=== PATIENT | female | born 1985 | race Two or more races ===

== ENCOUNTER 2020-03-25 | Outpatient (REF) | payer OTHER, SELFPAY | END 2020-03-25 00:01 | disposition home or self-care (01) | LOC: HO.WFDLNP | PROVIDERS: Visit Provider Family Medicine | DX: Z20.822 Contact with and (suspected) exposure to COVID-19 (principal) | CPT/HCPCS: U0003 ==

== ENCOUNTER 2020-09-29 10:13 | Outpatient (REF) | payer OTHER, SELFPAY ==
[2020-09-30 09:18] LABS: CT PCR NOT DETECTED (Not Detect.); NG PCR NOT DETECTED (Not Detect.)
[2020-09-30 09:23] LABS: BV Int Neg Control Negative (Negative); BV Int Pos Control Positive (Positive)
== END 2020-09-29 10:14 | disposition home or self-care (01) ==
LOC: HO.LAB 10:13
PROVIDERS: PCP Internal Medicine Endocrinology, Diabetes & Metabolism; Visit Provider Advanced Practice Midwife
DX: Z01.419 Encounter for gynecological examination (general) (routine) without abnormal findings (principal); F17.210 Nicotine dependence, cigarettes, uncomplicated; Z20.2 Contact with and (suspected) exposure to infections with a predominantly sexual mode of transmission
CPT/HCPCS: 87480; 87491; 87510; 87591; 87660

== ENCOUNTER 2021-01-27 09:56 | Outpatient (REF) | payer OTHER, SELFPAY ==
[2021-01-27 12:33] LABS: HCG Quantitative < 2 mIU/mL
[2021-01-27 12:38] LABS: HBsAGNum1 0.19 S/CO (0.00-0.99); HIV AB/AG Nonreactive (Nonreactive); HIV Num 1 0.07 S/CO (0.00-0.99); Hepatitis B Surface Antigen Negative (Negative); ~HepC Num1 0.09 S/CO (0.00-0.79); ~Hepatitis C Antibody Nonreactive (Nonreactive)
[2021-01-27 12:46] LABS: Syphilis Screen Nonreactive (Nonreactive)
[2021-01-27 13:57] LABS: HBc Num1 0.21 S/CO (0.00-0.79); Hepatitis B Core Antibody Nonreactive (Nonreactive)
[2021-01-27 16:38] LABS: CT PCR NOT DETECTED (Not Detect.); NG PCR NOT DETECTED (Not Detect.)
[2021-01-28 10:55] LABS: BV Int Neg Control Negative (Negative); BV Int Pos Control Positive (Positive)
== END 2021-01-27 09:57 | disposition home or self-care (01) ==
LOC: HO.LAB 09:56
PROVIDERS: Advanced Practice Midwife; Visit Provider Obstetrics & Gynecology
DX: Z11.3 Encounter for screening for infections with a predominantly sexual mode of transmission (principal); Z11.4 Encounter for screening for human immunodeficiency virus [HIV]; N89.8 Other specified noninflammatory disorders of vagina; N95.1 Menopausal and female climacteric states; Z20.2 Contact with and (suspected) exposure to infections with a predominantly sexual mode of transmission
CPT/HCPCS: 36415; 84702; 86704; 86780; 86803; 87340; 87389; 87480; 87491; 87510; 87591; 87660; 99212

== ENCOUNTER 2021-02-25 09:55 | Outpatient (REF) | payer OTHER, SELFPAY ==
[2021-02-25 12:01] LABS: HIV AB/AG Nonreactive (Nonreactive); HIV Num 1 0.15 S/CO (0.00-0.99); ~HepC Num1 0.15 S/CO (0.00-0.79); ~Hepatitis C Antibody Nonreactive (Nonreactive)
[2021-02-25 12:12] LABS: Thyroid Stimulating Hormone 1.38 uIU/mL (0.32-4.0)
[2021-02-26 09:05] LABS: Syphilis Screen Nonreactive (Nonreactive)
== END 2021-02-25 09:56 | disposition home or self-care (01) ==
LOC: HO.LAB 09:55
PROVIDERS: PCP Internal Medicine; Visit Provider Advanced Practice Midwife
DX: R63.5 Abnormal weight gain (principal); R68.89 Other general symptoms and signs; N92.1 Excessive and frequent menstruation with irregular cycle; Z13.29 Encounter for screening for other suspected endocrine disorder; Z11.3 Encounter for screening for infections with a predominantly sexual mode of transmission; Z11.59 Encounter for screening for other viral diseases; Z11.4 Encounter for screening for human immunodeficiency virus [HIV]; F17.210 Nicotine dependence, cigarettes, uncomplicated; Z98.51 Tubal ligation status; Z83.3 Family history of diabetes mellitus; Z82.49 Family history of ischemic heart disease and other diseases of the circulatory system; Z83.6 Family history of other diseases of the respiratory system; Z80.1 Family history of malignant neoplasm of trachea, bronchus and lung; Z91.040 Latex allergy status
CPT/HCPCS: 36415; 81025; 84443; 86780; 86803; 87389; 99212

== ENCOUNTER 2021-10-04 09:58 | Outpatient (REF) | payer MEDICAID, SELFPAY ==
[2021-10-04 12:28] LABS: Syphilis Screen Nonreactive (Nonreactive)
[2021-10-04 15:17] LABS: CT PCR NOT DETECTED (Not Detect.); NG PCR NOT DETECTED (Not Detect.)
[2021-10-05 06:43] LABS: HBc Num1 0.33 S/CO (0.00-0.79); HIV AB/AG Nonreactive (Nonreactive); HIV Num 1 0.13 S/CO (0.00-0.99); Hepatitis B Core Antibody Nonreactive (Nonreactive); ~HepC Num1 0.09 S/CO (0.00-0.79); ~Hepatitis C Antibody Nonreactive (Nonreactive)
[2021-10-05 09:42] LABS: BV Int Neg Control Negative (Negative); BV Int Pos Control Positive (Positive)
== END 2021-10-04 09:59 | disposition home or self-care (01) ==
LOC: HO.LAB 09:58
PROVIDERS: PCP Family Medicine; Visit Provider Advanced Practice Midwife
DX: Z11.3 Encounter for screening for infections with a predominantly sexual mode of transmission (principal); Z11.4 Encounter for screening for human immunodeficiency virus [HIV]; Z20.2 Contact with and (suspected) exposure to infections with a predominantly sexual mode of transmission
CPT/HCPCS: 36415; 86704; 86780; 86803; 87389; 87480; 87491; 87510; 87591; 87660

== ENCOUNTER 2022-09-18 11:49 | Emergency (ER) | payer MEDICAID, SELFPAY ==
[2022-09-18 12:15] VITALS: BP 116/68; PULSE 63; RESP 18; TEMP 37.7; O2SAT 100; BMI 23.5
--- NOTE | 2022-09-18 12:17 | ED.GENADULT ---
HPI - General Adult General Chief complaint: Nausea/Vomiting/Diarrhea Stated complaint: Dizziness/Nausea Time Seen by Provider: 09/18/22 12:42 Source: patient, RN notes reviewed and old records reviewed Mode of arrival: ambulatory Limitations: no limitations History of Present Illness HPI narrative: 37-year-old female with a past medical history of MS, recently diagnosed, presenting to the ED complaining of epigastric abdominal pain, nausea, nonbloody emesis x 1 week with decreased p.o. intake. Also reports intermittent lightheadedness, headache, CP and SOB. denies lightheadedness at present. Admits abdominal pain worse with eating and drinking. Denies fever, chills, vision change/loss, diarrhea/constipation, dysuria/hematuria, weakness Onset (ago): week(s) Related Data Previous Rx's Medication Instructions Recorded metronidazole 0.75 % (37.5 mg/5 1 appful vaginal BEDTIME 5 days 10/05/21 gram) vaginal gel #70 grams aluminum-mag hydroxide-simethicone 5 ml PO 5XD PRN dyspepsia #30 mL 09/18/22 200 mg-200 mg-20 mg/5 mL oral susp (Maalox Advanced) famotidine 20 mg tablet (Pepcid) 20 mg PO DAILY #14 tabs 09/18/22 ondansetron 4 mg disintegrating 4 mg PO Q8H PRN nausea and 09/18/22 tablet vomiting #10 tabs Allergies Allergy/AdvReac Type Severity Reaction Status Date / Time latex [Latex] Allergy Mild RASH Verified 09/18/22 12:15 Review of Systems Review of Systems: Constitutional: No Fever, No Chills, No Fatigue, No Malaise ENT/Mouth: No Ear Pain, No Swallowing Difficulty Eyes: No Eye Pain, No Swelling, No Redness, No Vision Changes Cardiovascular: No Chest Pain, No SOB Respiratory: No Cough, No Sputum, No Dyspnea Gastrointestinal: + Nausea, + Vomiting, No Diarrhea, No Constipation, + Abdominal pain Genitourinary: No irregular bleeding, No Dysuria, No Urinary Frequency, No Hematuria, No Flank Pain Musculoskeletal: No joint pain, No Myalgias, No Joint Swelling Skin: No Skin Lesions, No rash Neuro: No Weakness, No Numbness, No Paresthesias, No Loss of Consciousness, + intermittent lightheadedness, + Headache Yes all other systems are reviewed and are negative Constitutional: Constitutional: Reports as per HPI Neurologic: Denies Abnormal speech present [facility] Past Medical History Attestation statement: The following information was validated with the patient. Source: old records reviewed Medical History Depression with anxiety Exposure to TB Surgical History History of cranial surgery Hx of tubal ligation Family History Family History Mother Asthma HTN (hypertension) HIV (human immunodeficiency virus infection) Father Asthma HTN (hypertension) Diabetes Paternal Uncle Lung cancer Social History Social History Alcohol intake: current Alcohol intake frequency: a few times a month Alcohol type: beer, wine and hard liquor Patient Tobacco Use Status: Current everyday Tobacco user Tobacco use type: Cigarette Cigarettes Per Day: 10 Years Smoked: 28 Smoked in Last 30 Days: Yes Use of substances other than those prescribed or required for medical reasons: No Advance Directives: No Advance Directives Information Provided: Yes Physical Exam ED Vital Signs: Vital Signs - 24 hr 09/18/22 12:15 09/18/22 12:33 09/18/22 13:17 Temperature 99.8 F 98.4 F Pulse Rate 63 87 71 Respiratory Rate 18 18 Blood Pressure 116/68 128/78 107/61 Pulse Oximetry 100 100 Oxygen Delivery Method Room Air Room Air 09/18/22 13:19 09/18/22 13:19 Temperature Pulse Rate 76 81 Respiratory Rate Blood Pressure 110/70 111/60 Pulse Oximetry Oxygen Delivery Method BMI result Body Mass Index 23.5 Const General: cooperative, healthy appearing and no acute distress Orientation/consciousness: patient oriented x3 Limitations: no limitations HENMT Head: Yes normal to inspection and Yes atraumatic Ears: hearing grossly normal bilaterally General nose exam: Normal external nose present Face and sinus: Yes normal facial exam Mouth: Normal oral and palatal mucosa present Throat: Yes posterior oropharynx normal and Yes uvula midline Eyes General: appearance normal, both eyes and all related structures Pupils: Equal, round and reactive pupils present EOM: EOMs intact bilaterally Neck Neck: Yes normal visual inspection and Yes no meningeal signs Resp Effort & Inspection: normal respiratory effort and no respiratory distress Auscultation: clear to auscultation bilaterally, no crackles and no wheezes Cardio Rate: regular rate Heart sounds: S1 normal heart sound present and S2 normal heart sound present GI Inspection: Yes normal to inspection Palpation (GI): Soft to palpation, Tenderness to palpation present (GI) in the epigastrum and in the RUQ; with no rebound tenderness, no guarding and not rigid General: Yes no CVA tenderness Back/Spine/Pelvis Back: no CVA tenderness Skin Rashes: no rashes Wounds: no wounds Neuro General: patient oriented x3, gait normal, tone normal, moves all extremities, no meningeal signs, no focal motor deficits and CN's II-XI intact bilaterally Cranial nerves: Yes CN's II-XII intact bilaterally, Yes Equal, round and reactive pupils present and Yes Bilaterally intact EOM present Cognition (Neuro): normal cognition Speech: No Abnormal speech present Gait exam (Neuro): Normal gait present Motor exam (neuro): 5/5 motor strength present throughout Extrem General: Yes normal to inspection Course Course Course Narrative: RME; 29 yold female with recently diagnosed with mS presents to the ED for dizziness prescribed as lighteadheadenessess, nuasea, vomitting, and slighst epigastric discomfort. labs and EkG ordered -1400--mild leukocytosis of 12.2. Labs otherwise reassuring. Troponin negative. UA negative. -radiology currently down, preliminary report of RUQ US reading fatty infiltration/hepatocellular disease. Gallbladder polyps without cholecystitis -orthostatic vital signs negative. Will p.o. challenge >> patient tolerating p.o. without abdominal pain, nausea or vomiting. Reports symptomatic improvement after medications given in the ED -1500-- patient requesting serum bHCG levels be drawn. She is aware of the negative urine results however is requesting this be doubled checked. -1646--blood hCG negative Results discussed with patient including worrisome signs and symptoms and strict return precautions, and when to return to the emergency department. They verbalized understanding and feel safe for discharge at this time. Medications Administered Discontinued Medications Generic Name Dose Route Start Last Admin Trade Name Freq PRN Reason Stop Dose Admin Al Hydroxide/Mg Hydroxide 30 ml 09/18/22 13:26 09/18/22 14:30 Magnesium Hydrox/Alum Hydrox 30 Ml Oral.Susp PO 09/18/22 13:27 30 ml ONCE ONE Administration Famotidine 20 mg 09/18/22 13:26 09/18/22 13:31 Famotidine/Pf 20 Mg/2 Ml Vial IVPUSH 09/18/22 13:27 20 mg ONCE ONE Administration Sodium Chloride 1,000 mls @ 999 mls/hr 09/18/22 12:45 09/18/22 15:39 Ns IV 09/18/22 13:45 Infused .Q1H1M TANVIR Infusion Ondansetron HCl 4 mg 09/18/22 13:26 09/18/22 13:31 Ondansetron Hcl 4 Mg/2 Ml Vial IVPUSH 09/18/22 13:27 4 mg ONCE ONE Administration Medical Decision Making Medical Decision Making [facility] Narrative: 37-year-old female with a past medical history of MS, recently diagnosed, presenting to the ED complaining of epigastric abdominal pain, nausea, nonbloody emesis x 1 week with decreased p.o. intake. Also reports intermittent lightheadedness, headache, CP and SOB. On exam vital signs stable, NAD, nontoxic appearing, no focal neuro deficits, denies lightheadedness at present, abdomen soft epigastric/RUQ tenderness, no rebound or guarding. Concern for pancreatitis vs cholecystitis/lithiasis vs possible medication reaction to new MS injection. Lower suspicion for renal stone/pyelo, UTI, atypical ACS/PE or CVA/cervical dissection or BPPV Plan: EKG, labs, UA, abdomen ultrasound, IVF, symptomatic treatment Please refer to course for remaining clinical decision making, interpretation of labs/imaging results, and discussions with consultants and/or family members. Differential Diagnosis Differential Diagnoses: The differential diagnosis associated with the presentation includes As above Lab Data [facility] Lab Attestation statement: I reviewed the patient's lab results. 09/18/22 12:48 09/18/22 12:47 Labs: Lab Results 09/18/22 09/18/22 09/18/22 Range/Units 12:46 12:46 12:47 WBC (4.8-10.8) X10*3/uL RBC (4.20-5.50) X10*6/uL Hgb (12.0-16.0) g/dl Hct (37.0-47.0) % MCV (80.0-98.0) fL MCH (27.0-33.0) pg MCHC (31.0-35.0) g/dl RDW (11.0-16.0) % Plt Count (160-400) X10*3/uL MPV (9.4-12.3) fL Immature Gran % (Auto) (0.0-0.4) % Neut % (Auto) (45-73) % Lymph % (Auto) (20-40) % [place] % (Auto) (2-11) % Eos % (Auto) (0-4) % Baso % (Auto) (0-2) % Lymph # (Auto) (1.2-4.9) X10*3/uL [place] # (Auto) (0.1-1.2) X10*3/uL Eos # (Auto) (0.0-0.4) X10*3/uL Baso # (Auto) (0.0-0.2) X10*3/uL Abs Immat Gran (auto) (0.00-0.03) X10*3/uL Absolute Neuts (auto) (2.0-8.3) x10*3/uL Absolute Nucleated RBC (0.0-0.012) X10*3/uL Nucleated RBC % (auto) (0.0-0.2) /100WBC PT (10.0-13.1) SEC INR (0.9-1.1) APTT (26.0-36.4) SEC Sodium 139 (135-145) mmol/L Potassium 3.8 (3.3-5.1) mmol/L Chloride 105 (96-108) mmol/L Carbon Dioxide 25 (22-29) mmol/L Anion Gap 13 (12-20) BUN 8 L (9-16) mg/dL Creatinine 0.66 (0.5-1.4) mg/dL Estim Creat Clear Calc 108.1 Estimated GFR > 60 Random Glucose 95 (60-115) mg/dL Calcium 9.5 (8.4-10.2) mg/dL Magnesium 2.1 (1.6-2.6) mg/dL Total Bilirubin 0.8 (0.0-1.0) mg/dL AST 16 (5-31) U/L ALT 12 (0-31) U/L Alkaline Phosphatase 66 (39-117) U/L Troponin I High Sens (<3.5-17.0) ng/L Total Protein 7.4 (6.5-8.0) g/dL Albumin 4.3 (3.5-5.0) g/dL Lipase 29 (8-78) U/L Beta HCG, Quant mIU/mL Urine Color Yellow Urine Appearance Clear Urine pH 7.0 (5.0-9.0) Ur Specific [place] 1.015 (1.005-1.025) Urine Protein Negative (Neg-Trace) mg/dL Urine Glucose (UA) Negative (Negative) mg/dL Urine Ketones Negative (Negative) mg/dL Urine Blood Negative (Negative) Urine Nitrite Negative (Negative) Ur Leukocyte Esterase Negative (Negative) Urine Test NEGATIVE (NEGATIVE) 09/18/22 09/18/22 09/18/22 Range/Units 12:47 12:48 12:48 WBC 12.2 H (4.8-10.8) X10*3/uL RBC 4.52 (4.20-5.50) X10*6/uL Hgb 13.6 (12.0-16.0) g/dl Hct 41.5 (37.0-47.0) % MCV 91.8 (80.0-98.0) fL MCH 30.1 (27.0-33.0) pg MCHC 32.8 (31.0-35.0) g/dl RDW 12.9 (11.0-16.0) % Plt Count 571 H (160-400) X10*3/uL MPV 8.6 L (9.4-12.3) fL Immature Gran % (Auto) 0.3 (0.0-0.4) % Neut % (Auto) 71.8 (45-73) % Lymph % (Auto) 19.1 L (20-40) % [place] % (Auto) 7.6 (2-11) % Eos % (Auto) 0.7 (0-4) % Baso % (Auto) 0.5 (0-2) % Lymph # (Auto) 2.3 (1.2-4.9) X10*3/uL [place] # (Auto) 0.9 (0.1-1.2) X10*3/uL Eos # (Auto) 0.1 (0.0-0.4) X10*3/uL Baso # (Auto) 0.1 (0.0-0.2) X10*3/uL Abs Immat Gran (auto) 0.04 H (0.00-0.03) X10*3/uL Absolute Neuts (auto) 8.7 H (2.0-8.3) x10*3/uL Absolute Nucleated RBC 0.000 (0.0-0.012) X10*3/uL Nucleated RBC % (auto) 0.0 (0.0-0.2) /100WBC PT 12.5 (10.0-13.1) SEC INR 1.1 (0.9-1.1) APTT 32.3 (26.0-36.4) SEC Sodium (135-145) mmol/L Potassium (3.3-5.1) mmol/L Chloride (96-108) mmol/L Carbon Dioxide (22-29) mmol/L Anion Gap (12-20) BUN (9-16) mg/dL Creatinine (0.5-1.4) mg/dL Estim Creat Clear Calc Estimated GFR Random Glucose (60-115) mg/dL Calcium (8.4-10.2) mg/dL Magnesium (1.6-2.6) mg/dL Total Bilirubin (0.0-1.0) mg/dL AST (5-31) U/L ALT (0-31) U/L Alkaline Phosphatase (39-117) U/L Troponin I High Sens < 2.7 (<3.5-17.0) ng/L Total Protein (6.5-8.0) g/dL Albumin (3.5-5.0) g/dL Lipase (8-78) U/L Beta HCG, Quant mIU/mL Urine Color Urine Appearance Urine pH (5.0-9.0) Ur Specific [place] (1.005-1.025) Urine Protein (Neg-Trace) mg/dL Urine Glucose (UA) (Negative) mg/dL Urine Ketones (Negative) mg/dL Urine Blood (Negative) Urine Nitrite (Negative) Ur Leukocyte Esterase (Negative) Urine Test (NEGATIVE) 09/18/22 Range/Units 14:50 WBC (4.8-10.8) X10*3/uL RBC (4.20-5.50) X10*6/uL Hgb (12.0-16.0) g/dl Hct (37.0-47.0) % MCV (80.0-98.0) fL MCH (27.0-33.0) pg MCHC (31.0-35.0) g/dl RDW (11.0-16.0) % Plt Count (160-400) X10*3/uL MPV (9.4-12.3) fL Immature Gran % (Auto) (0.0-0.4) % Neut % (Auto) (45-73) % Lymph % (Auto) (20-40) % [place] % (Auto) (2-11) % Eos % (Auto) (0-4) % Baso % (Auto) (0-2) % Lymph # (Auto) (1.2-4.9) X10*3/uL [place] # (Auto) (0.1-1.2) X10*3/uL Eos # (Auto) (0.0-0.4) X10*3/uL Baso # (Auto) (0.0-0.2) X10*3/uL Abs Immat Gran (auto) (0.00-0.03) X10*3/uL Absolute Neuts (auto) (2.0-8.3) x10*3/uL Absolute Nucleated RBC (0.0-0.012) X10*3/uL Nucleated RBC % (auto) (0.0-0.2) /100WBC PT (10.0-13.1) SEC INR (0.9-1.1) APTT (26.0-36.4) SEC Sodium (135-145) mmol/L Potassium (3.3-5.1) mmol/L Chloride (96-108) mmol/L Carbon Dioxide (22-29) mmol/L Anion Gap (12-20) BUN (9-16) mg/dL Creatinine (0.5-1.4) mg/dL Estim Creat Clear Calc Estimated GFR Random Glucose (60-115) mg/dL Calcium (8.4-10.2) mg/dL Magnesium (1.6-2.6) mg/dL Total Bilirubin (0.0-1.0) mg/dL AST (5-31) U/L ALT (0-31) U/L Alkaline Phosphatase (39-117) U/L Troponin I High Sens (<3.5-17.0) ng/L Total Protein (6.5-8.0) g/dL Albumin (3.5-5.0) g/dL Lipase (8-78) U/L Beta HCG, Quant < 2 mIU/mL Urine Color Urine Appearance Urine pH (5.0-9.0) Ur Specific [place] (1.005-1.025) Urine Protein (Neg-Trace) mg/dL Urine Glucose (UA) (Negative) mg/dL Urine Ketones (Negative) mg/dL Urine Blood (Negative) Urine Nitrite (Negative) Ur Leukocyte Esterase (Negative) Urine Test (NEGATIVE) Independent Interpretation I performed an independent interpretation of an: EKG (EKG normal sinus rhythm at a rate of 76. Pr interval 130. QTC 427. No significant change when compared to prior) Radiology Impression Discussion of test interpretation with radiology: I have reviewed the radiologist's reading. External Record Review External record reviewed: Inpatient record, Office record, Outpatient record, Prior outpatient labs, Prior outpatient radiology, Primary care record and Outside ED record Tests considered The following testing was considered but not selected: As above Prescription Management I considered prescription management with: Pain Medication and Other (antiemetics) Chronic Conditions Patient?s care impacted by: Other (MS) Critical Care Time Critical Care Time Critical Care Time: No Discharge Plan Discharge Clinical Impression: Gallbladder polyp, Abdominal pain, Nausea & vomiting Patient Disposition: Home, Self-Care Instructions: Acute Nausea and Vomiting (ED), Abdominal Pain (ED) Additional Instructions: Your labs are reassuring. The ultrasound of your abdomen showed that you have a fatty liver and polyps in your gallbladder that do not require intervention at this time. Please follow up with your PCP and a GI specialist for further workup. Zofran has been sent to your pharmacy. This is an anti nausea medication. Take this as prescribed. Pepcid and maalox have been sent to your pharmacy. These are medications that help with indigestion. Take these as prescribed. Return to the ED if your abdominal pain worsens, you continue to vomit despite treatment, or you spike a fever. Prescriptions: New famotidine [Pepcid] 20 mg tablet 20 mg PO DAILY Qty: 14 0RF alum-mag hydroxide-simeth [Maalox Advanced] 200-200-20 mg/5 mL suspension 5 ml PO 5XD PRN (Reason: dyspepsia) Qty: 30 0RF Rx Instructions: administer between meals and at bedtime ondansetron 4 mg tablet,disintegrating 4 mg PO Q8H PRN (Reason: nausea and vomiting) Qty: 10 0RF No Action metronidazole 0.75 % gel 1 appful vaginal BEDTIME 5 Days Qty: 70 0RF [place] [facility] [place] Group] - 5 days Tiara Han MD [Primary Care Provider] - 5 days Interventions: ED Discharge Assessment Last Done: 09/18/22 16:55 Discharge Date/Time: 09/18/22 16:56
[2022-09-18 12:33] VITALS: BP 128/78; PULSE 87; RESP 18; TEMP 36.9; O2SAT 100
[2022-09-18 13:17] VITALS: BP 107/61; PULSE 71
[2022-09-18 13:19] VITALS: BP 110/70; BP 111/60; PULSE 76; PULSE 81
== END 2022-09-18 16:56 | disposition home or self-care (01) ==
PROVIDERS: Emergency Provider Emergency Medicine Emergency Medical Services; PCP Family Medicine
DX: K82.4 Cholesterolosis of gallbladder (principal); R11.2 Nausea with vomiting, unspecified; R10.13 Epigastric pain; R11.0 Nausea; R11.10 Vomiting, unspecified; R42 Dizziness and giddiness; R51.9 Headache, unspecified; R07.9 Chest pain, unspecified; R06.02 Shortness of breath
CPT/HCPCS: 36415; 76705; 80053; 81003; 81025; 83690; 83735; 84484; 84702; 85025; 85610; 85730; 93005; 96361; 96374; 96375; 99284; 99285; J2405

== ENCOUNTER 2022-10-06 09:54 | Outpatient (REF) | payer MEDICAID, SELFPAY ==
[2022-10-06 11:50] LABS: Appearance Urine Cloudy; Color Urine Yellow; Glucose Urine UA Negative (Negative); Leukocyte Esterase Urine Negative (Negative); Nitrite Urine Negative (Negative); Urine Blood Negative (Negative); Urine Ketones Negative (Negative); Urine Protein Negative (Neg-Trace)
[2022-10-06 18:02] LABS: CT PCR NOT DETECTED (Not Detect.); NG PCR NOT DETECTED (Not Detect.)
[2022-10-07 08:24] LABS: Syphilis Screen Nonreactive (Nonreactive)
[2022-10-07 08:30] LABS: HBc Num1 0.33 S/CO (0.00-0.79); HIV AB/AG Nonreactive (Nonreactive); HIV Num 1 0.05 S/CO (0.00-0.99); Hepatitis B Core Antibody Nonreactive (Nonreactive); ~HepC Num1 0.11 S/CO (0.00-0.79); ~Hepatitis C Antibody Nonreactive (Nonreactive)
[2022-10-07 13:27] LABS: BV Int Neg Control Negative (Negative); BV Int Pos Control Positive (Positive)
== END 2022-10-06 09:55 | disposition home or self-care (01) ==
LOC: HO.LAB 09:54
PROVIDERS: PCP Family Medicine; Visit Provider Advanced Practice Midwife
DX: Z01.419 Encounter for gynecological examination (general) (routine) without abnormal findings (principal); R35.0 Frequency of micturition; R10.2 Pelvic and perineal pain; N89.8 Other specified noninflammatory disorders of vagina; F32.A Depression, unspecified; Z20.2 Contact with and (suspected) exposure to infections with a predominantly sexual mode of transmission; Z98.51 Tubal ligation status
CPT/HCPCS: 0353U; 36415; 81003; 86704; 86780; 86803; 87389; 87480; 87510; 87660; 99395

== ENCOUNTER 2022-10-06 09:54 | Outpatient (AMB) | payer MEDICAID, SELFPAY ==
[2022-10-06 10:00] VITALS: BP 108/70; BMI 25.0
--- NOTE | 2022-10-06 10:00 | MHC.OFFVIS ---
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 Scribed for RENO Agustin by Odilia Magaña, certified medical technician assistant, on 10/06/2022 at 10:16 am EST Shuttleless Loom Weaver Required: No Information Interpreted: non-clinical & clinical Green Ware Caster: Green Ware Caster Present (Aidyn) Allergies latex [Latex] Allergy (Mild, Verified 10/06/22 10:04) RASH Is last menstrual period known: Yes Last menstrual period: 09/20/22 Post menopausal: No HPI HPI Comments History of Present Illness Details She is a premenopausal woman presenting for annual exam. Feeling depressed due to recent diagnosis of MS, and had to stop working. Recently went to the ED 09/18/22 was told bladder and uterus is inflamed back in July. Admits to frequent urination, pelvic pressure, bloating and vaginal discharge for the past 2 weeks. PCP is sending her to GI specialist in the end of September for her abdominal bloating. States her menses are shorter than normal x 2 cycles. Currently sexually active, on and off again partner who has another female partner. Denies vaginal itching and irritation. STD screening and STD blood work offered; she accepts. She was wondering if her tubal was efficient, she reports they were only tied. Denies family hx of colon and ovarian cancer. Last pap smear 09/08/17 [facility] Medical History Depression with anxiety Exposure to TB Frequency of urination Multiple sclerosis Pelvic pressure in female Surgical History History of cranial surgery Hx of tubal ligation Family History Mother Asthma HTN (hypertension) HIV (human immunodeficiency virus infection) Father Asthma HTN (hypertension) Diabetes Paternal Uncle Lung cancer Family/Other Breast cancer Social History Alcohol intake: current Alcohol intake frequency: a few times a month Alcohol type: beer, wine and hard liquor Patient Tobacco Use Status: Current everyday Tobacco user Tobacco use type: Cigarette Cigarette Packs Per Day: 1 Cigarettes Per Day: 20 Years Smoked: 28 Female Reproductive History Menstrual Age of Menarche: 11 Duration of menses: 3-5 days Date of last menstrual period: 09/20/22 control method: permanent sterilization Total pregnancies: 5 Full term: 3 Number of Living Children: 3 Ab spontaneous: 2 Date of last pap smear: 09/08/17 (negative) History of abnormal pap smear: Yes Physical Exam Vital Signs: Last Vital Signs BP 108/70 10/06/22 10:00 BMI result Body Mass Index 25.0 Const General: cooperative, healthy appearing, no acute distress, well developed and alert Orientation/consciousness: patient oriented x3 HEENT Head: Yes normal to inspection Eyes General: appearance normal, both eyes and all related structures Neck Neck: Yes normal visual inspection Thyroid: Thyroid normal Chest Chest palpation & inspection: normal inspection of the chest Breast/axilla inspection: normal inspection of the breasts (no puckering, dimpling, peau de orange, retraction, discharge, masses) Breast/axilla palpation: normal palpation of the breasts Resp Effort & Inspection: normal respiratory effort GI Inspection: Yes normal to inspection Palpation (GI): Soft to palpation (to palpation) Rectal Exam - Female: deferred General: Yes bladder normal to inspection External Female Exam: normal external appearance and normal appearance of the urethra Speculum Exam - Vagina: normal appearance of the vagina, normal palpation and normal vaginal discharge Speculum Exam - Cervix: normal appearance of the cervix and normal palpation Bimanual exam- vagina & uterus: normal palpation and normal palpation Bimanual Exam- Adnexa, other: normal adnexae and no masses Skin General skin exam: no rashes or lesions noted Neuro General: patient oriented x3 Cognition (Neuro): normal cognition Extrem General: Yes normal to inspection Psych Attitude: cooperative Thought process: Normal thought process present Assessment & Plan Assessment & Plan (1) Encounter for well woman exam: Code(s): Z01.419 - Encounter for gynecological examination (general) (routine) without abnormal findings Plan: Discussed: Current recommendations for pap smears per ASCCP guidelines Breast awareness and periodic self breast exams. Maintaining a healthy lifestyle including a well balanced diet and routine exercise. Advised to lower tobacco intake, and quit. Referral to [facility] for counseling/therapy regarding depression. Encouraged to use condoms always for STD prevention. If missed menses take at home test. Monitor menses, if missed obtain a home PT. small risk of tubal . Can obtain her operative [place] for clarity if she desires [place] [facility] [place] typical [place] procedures. US ordered for pressure/bloating. Follow up for results. BV testing, STD blood work and GC/CT panel done today. Await results and treat accordingly. All of her questions and concerns were addressed to the best of my ability. RTO in one year for AG. (2) Frequency of urination: Code(s): R35.0 - Frequency of micturition (3) Pelvic pressure in female: Code(s): R10.2 - Pelvic and perineal pain (4) Vaginal discharge: Code(s): N89.8 - Other specified noninflammatory disorders of vagina (5) Depression: Code(s): F32.A - Depression, unspecified Orders: Orders US pelvic and transvaginal Today R10.2 - Pelvic and perineal pain UA CC w/rflx Micro + Cult Today R35.0 - Frequency of micturition Hepatitis B Core Antibody Today Z20.2 - Contact with and (suspected) exposure to infections with a predominantly sexual mode of transmission Hepatitis C Antibody Today Z20.2 - Contact with and (suspected) exposure to infections with a predominantly sexual mode of transmission HIV Ab/Ag Today Z20.2 - Contact with and (suspected) exposure to infections with a predominantly sexual mode of transmission Syphilis Screen Today Z20.2 - Contact with and (suspected) exposure to infections with a predominantly sexual mode of transmission Bacterial Vaginosis Panel Today Z01.419 - Encounter for gynecological examination (general) (routine) without abnormal findings CT NG by PCR Today Z01.419 - Encounter for gynecological examination (general) (routine) without abnormal findings Pap Smear Today Z01.419 - Encounter for gynecological examination (general) (routine) without abnormal findings Referrals Counseling Referral F32.A - Depression, unspecified Coding Level of Care Code Est Pt Prev Care 18-39y(10218) Diagnoses Encounter for well woman exam Z01.419 Frequency of urination R35.0 Pelvic pressure in female R10.2 Vaginal discharge N89.8 Depression F32.A
== END 2022-10-06 10:40 | disposition home or self-care (01) ==
LOC: HO.HWS 09:54
PROVIDERS: PCP Family Medicine; Visit Provider Advanced Practice Midwife
DX: Z01.419 Encounter for gynecological examination (general) (routine) without abnormal findings (principal); R35.0 Frequency of micturition; R10.2 Pelvic and perineal pain; N89.8 Other specified noninflammatory disorders of vagina; F32.A Depression, unspecified
CPT/HCPCS: 99395

== ENCOUNTER 2022-10-06 11:03 | Outpatient (REF) | payer MEDICAID, SELFPAY ==
[2022-10-15 11:48] LABS: HPV 16 RNA NOT DETECTED (NOT DETECTED); HPV mRNA E6/E7 rflx Detected (Not Detected)
== END 2022-10-06 11:04 | disposition home or self-care (01) ==
LOC: HO.LNP 11:03
PROVIDERS: Visit Provider Advanced Practice Midwife
DX: Z01.419 Encounter for gynecological examination (general) (routine) without abnormal findings (principal); Z20.2 Contact with and (suspected) exposure to infections with a predominantly sexual mode of transmission
CPT/HCPCS: 87624; 87625; 88142

== ENCOUNTER 2022-10-17 10:49 | Outpatient (REF) | payer MEDICAID, SELFPAY ==
--- NOTE | ~2022-10-17 | US_ITS ---
EXAMINATION: US PELVIS CLINICAL INFORMATION: Pelvic and perineal pain, bloating and pressure; the last menstrual period was on 09/20/2022. COMPARISON: Pelvic ultrasound dated 07/11/2019. TECHNIQUE: Ultrasound of the pelvis is performed using both transabdominal and transvaginal transducers along with Doppler. Transvaginal imaging is performed due to inadequate visualization transabdominally. FINDINGS: Uterus: The uterus is anteverted and measures 8.1 x 4.8 x 4.6 cm. The uterus is retroverted and retroflexed. Tiny punctate endometrial foci are seen, likely a sequela of prior hemorrhage or infection. These are of doubtful acute clinical significance. The double wall endometrial thickness is 0.6 mm. The uterus is smooth in contour and has normal myometrial echogenicity. No visible fibroid. Adnexa: Both ovaries are visualized. There is normal color flow to the adnexa. There is no ovarian torsion. There is a small amount of nonspecific free fluid in the cul-de-sac. Right ovary measures 3.4 x 1.6 x 1.6 cm, volume 6.3 mL. Left ovary measures 3.1 x 1.6 x 2.4 cm, volume 7.4 mL. US/US pelvic and transvaginal IMPRESSION: A small amount of nonspecific free fluid is seen within the cul-de-sac. The examination is otherwise unremarkable.
== END 2022-10-17 10:50 | disposition home or self-care (01) ==
LOC: HO.US 10:49
PROVIDERS: PCP Family Medicine; Visit Provider Advanced Practice Midwife
DX: R10.2 Pelvic and perineal pain (principal)
CPT/HCPCS: 76830; 76856

== ENCOUNTER 2022-11-09 09:04 | Outpatient (AMB) | payer MEDICAID, SELFPAY ==
--- NOTE | 2022-11-09 09:11 | A.OFFVIS_ITS ---
Intake Vital Signs 11/09/22 09:12 Height 5 ft 3 in Weight 141 lb BMI 25.0 BP 100/68 Intake Visit Reasons: US/Labs Follow up Intake Note: The patient agreed to use of a medical safety director during this encounter. Scribed for RENO Agustin by Odiila Magaña medical safety director, on 11/09/2022 at 9:28 am EST. Allergies latex [Latex] Allergy (Mild, Verified 11/09/22 09:12) RASH Is last menstrual period known: Yes Last menstrual period: 10/18/22 HPI HPI Comments History of Present Illness Details She is here to discuss US results regarding pelvic pain. Reports new onset pain during intimacy. States her and her partner feels like he is hitting something . No new partner. Denies feeling a external vulvar bulge or leakage of urine. [facility] Medical History Abnormal Pap smear of cervix Depression with anxiety Dyspareunia, female Exposure to TB Frequency of urination Multiple sclerosis Pelvic pressure in female Surgical History History of cranial surgery Hx of tubal ligation Family History Mother Asthma HTN (hypertension) HIV (human immunodeficiency virus infection) Father Asthma HTN (hypertension) Diabetes Paternal Uncle Lung cancer Family/Other Breast cancer Social History Alcohol intake: current Alcohol intake frequency: a few times a month Alcohol type: beer, wine and hard liquor Patient Tobacco Use Status: Current everyday Tobacco user Tobacco use type: Cigarette Cigarette Packs Per Day: 1 Cigarettes Per Day: 20 Years Smoked: 28 Female Reproductive History Menstrual Age of Menarche: 11 Date of last menstrual period: 10/18/22 Physical Exam Vital Signs: Last Vital Signs BP 100/68 11/09/22 09:12 BMI result Body Mass Index 25.0 Const General: cooperative, healthy appearing, comfortable, no acute distress, well developed, alert and awake Other: retroverted uterus; additionally patient had similar discomfort with exam as compared to with intimacy, when the posterior wall of her uterus was palpated today. General: Yes bladder normal to palpation External Female Exam: normal external appearance and normal appearance of the urethra Speculum Exam - Vagina: normal appearance of the vagina, normal palpation and normal vaginal discharge Speculum Exam - Cervix: normal appearance of the cervix and normal palpation Bimanual exam- vagina & uterus: normal bimanual exam, normal palpation, bladder normal to palpation and normal palpation Bimanual Exam- Adnexa, other: normal adnexae and no masses Results Reviewed Results Reviewed: EXAMINATION:? US PELVIS CLINICAL INFORMATION:? Pelvic and perineal pain, bloating and pressure; the last menstrual period was on 09/20/2022. COMPARISON: Pelvic ultrasound dated 07/11/2019. TECHNIQUE: Ultrasound of the pelvis is performed using both transabdominal and transvaginal transducers along with Doppler. Transvaginal imaging is performed due to inadequate visualization transabdominally. FINDINGS: Uterus: The uterus is anteverted and measures 8.1 x 4.8 x 4.6 cm. The uterus is retroverted and retroflexed. Tiny punctate endometrial foci are seen, likely a sequela of prior hemorrhage or infection. These are of doubtful acute clinical significance. The double wall endometrial thickness is 0.6 mm.? The uterus is smooth in contour and has normal myometrial echogenicity. ? No visible fibroid. Adnexa: Both ovaries are visualized. There is normal color flow to the adnexa. There is no ovarian torsion.? There is a small amount of nonspecific free fluid in the cul-de-sac. Right ovary measures 3.4 x 1.6 x 1.6 cm, volume 6.3 mL. Left ovary measures 3.1 x 1.6 x 2.4 cm, volume 7.4 mL. US/US pelvic and transvaginal IMPRESSION: A small amount of nonspecific free fluid is seen within the cul-de-sac. The examination is otherwise unremarkable. Attending: Brittany Mtz CNM : 1985 Submitted by: Brittany Mtz CNM Copies to: MR #: [id number] ? Status: DEP REF Collected: 10/06/22 Location: .[facility] Received: 10/11/22 Interpretation General Category: Epithelial cell abnormality. Adequacy: ? Endocervical component present. Interpretation: ? Atypical squamous cells of undetermined significance. Coccobacilli consistent with shift in vaginal flakito. HPV mRNA E6/E7:? DETECTED This assay detects E6/E7 viral messenger RNA (mRNA) from 14 high-risk HPV types (16, 18, 31, 33, 35, 39, 45, 51, 52, 56, 58, 59, 66, 68) HPV Type 16 RNA:? Not Detected HPV Type 18/45 RNA: ? Not Detected HPV testing performed by [facility], [place], [place].? See reference laboratory portion of the EMR for entire report Clinical Information LMP: 09/20/22 Previous PAP test: 09/08/17, WNL Assessment & Plan Assessment & Plan (1) Encounter to discuss test results: Code(s): Z71.2 - Person consulting for explanation of examination or test findings Plan: Discussed: US findings: normal. All of her questions and concerns were addressed to the best of my ability and shared decision making. She is agreeable to plan of care. (2) Abnormal Pap smear of cervix: Comment: ASCUS with HPV+; repeat in 2023. Discussed pap and plan of care today. Code(s): R87.619 - Unspecified abnormal cytological findings in specimens from cervix uteri (3) Dyspareunia, female: Code(s): N94.10 - Unspecified dyspareunia Plan: Discussed: Discomfort most likely positional with RV uterus and contributing factors to muscle weakness, lowering of pelvic organs with aging. Advised to try a silicone penis rings, or can use her hand as a spacer, and different positions during intimacy to avoid the direct impact pressure during intimacy. Coding Level of Care Code Est Pt Level 4 (99651) Diagnoses Encounter to discuss test results Z71.2 Abnormal Pap smear of cervix R87.619 Dyspareunia, female N94.10
[2022-11-09 09:12] VITALS: BP 100/68; BMI 25.0
== END 2022-11-09 14:57 | disposition home or self-care (01) ==
LOC: HO.HWS 09:04
PROVIDERS: PCP Family Medicine; Visit Provider Advanced Practice Midwife
DX: Z71.2 Person consulting for explanation of examination or test findings (principal); R87.619 Unspecified abnormal cytological findings in specimens from cervix uteri; N94.10 Unspecified dyspareunia
CPT/HCPCS: 99214

== ENCOUNTER → 2022-11-09 09:04 | Outpatient (BNVA) | payer MEDICAID, SELFPAY | PROVIDERS: PCP Family Medicine; Visit Provider Advanced Practice Midwife | DX: N94.10 Unspecified dyspareunia (principal); R87.619 Unspecified abnormal cytological findings in specimens from cervix uteri; Z71.2 Person consulting for explanation of examination or test findings | CPT/HCPCS: 99214 ==

== ENCOUNTER 2022-12-13 10:13 | Outpatient (REF) | payer MEDICAID, SELFPAY ==
[2022-12-13 11:18] LABS: MANUAL DIFF FLAG NO
[2022-12-13 11:36] LABS: Basophils Absolute Auto 0.1 X10*3/uL (0.0-0.2); Basophils Percent Auto 0.3 % (0-2); Eosinophils Absolute Auto 0.1 X10*3/uL (0.0-0.4); Eosinophils Percent Auto 0.6 % (0-4); Hematocrit 42.7 % (37.0-47.0); Imm Gran Abs Auto 0.07 X10*3/uL (0.00-0.03); Imm Gran Pct Auto 0.4 % (0.0-0.4); Lymphocytes Absolute Auto 2.7 X10*3/uL (1.2-4.9); Lymphocytes Percent Auto 16.8 % (20-40); Mean Corpuscular HGB Conc 32.8 g/dl (31.0-35.0); Mean Corpuscular Hemoglobin 29.9 pg (27.0-33.0); Mean Corpuscular Volume 91.2 fL (80.0-98.0); Mean Platelet Volume 9.4 fL (9.4-12.3); Monocytes Absolute Auto 1.1 X10*3/uL (0.1-1.2); Monocytes Percent Auto 6.8 % (2-11); Neutrophils Absolute Auto 12.2 x10*3/uL (2.0-8.3); Neutrophils Percent Auto 75.1 % (45-73); Platelet Count 613 X10*3/uL (160-400); Red Blood Count 4.68 X10*6/uL (4.20-5.50); Red Cell Distribution Width 13.2 % (11.0-16.0); White Blood Count 16.2 X10*3/uL (4.8-10.8)
[2022-12-13 12:01] LABS: Iron 95 mcg/dL (30-160); Percent Iron Saturation 30 % (15-50); Total Iron Binding Capacity 317 mcg/dL (228-428); Unsaturated Iron Binding 222 ug/dL
[2022-12-13 12:20] LABS: Ferritin 27 ng/mL (10-122)
[2022-12-13 12:31] LABS: Folate 9.6 ng/mL (> or = 4.0); Vitamin B12 546 pg/mL (200-900)
[2022-12-13 13:45] LABS: CT PCR NOT DETECTED (Not Detect.); NG PCR NOT DETECTED (Not Detect.)
[2022-12-14 03:56] LABS: Syphilis Screen Nonreactive (Nonreactive)
[2022-12-14 04:25] LABS: HBsAGNum1 0.38 S/CO (0.00-0.99); HIV AB/AG Nonreactive (Nonreactive); HIV Num 1 0.06 S/CO (0.00-0.99); Hepatitis B Core Antibody Nonreactive (Nonreactive); Hepatitis B Surface Antigen Negative (Negative); ~HepC Num1 0.09 S/CO (0.00-0.79); ~Hepatitis B Surface Antibody REACTIVE (Nonreactive); ~Hepatitis C Antibody Nonreactive (Nonreactive)
== END 2022-12-13 10:14 | disposition home or self-care (01) ==
LOC: HO.HHCL 10:13
PROVIDERS: PCP Family Medicine; Visit Provider Family Medicine
DX: Z11.4 Encounter for screening for human immunodeficiency virus [HIV] (principal); Z11.3 Encounter for screening for infections with a predominantly sexual mode of transmission; D64.9 Anemia, unspecified; L65.9 Nonscarring hair loss, unspecified
CPT/HCPCS: 0353U; 82607; 82728; 82746; 83540; 84443; 85025; 86704; 86706; 86780; 86803; 87340; 87389

== ENCOUNTER → 2023-01-03 09:58 | Outpatient (BNV) | payer MEDICAID, SELFPAY | PROVIDERS: PCP Family Medicine; Visit Provider Internal Medicine Medical Oncology | DX: D72.829 Elevated white blood cell count, unspecified (principal) | CPT/HCPCS: 99204; 99213 ==

== ENCOUNTER 2023-04-11 08:47 | Outpatient (AMB) | payer MEDICAID, SELFPAY ==
--- NOTE | 2023-04-11 09:03 | MHC.OFFVIS ---
Intake Vital Signs 04/11/23 09:05 Height 5 ft 3 in Weight 136 lb 10.986 oz BMI 24.2 BP 112/74 Blood Pressure Location Lt brachial Position Sitting Pulse 83 Intake Visit Reasons: RUQ Pain, GB Polyp Intake Note: Evelyn presents in the office as a new patient for RUQ pains and GB Polyp. CC: RUQ pains, she states that depends on her iron will decide if she has constipation and diarrhea. She was having iron infusions. No blood when she has a BM. Sometimes she has acid reflux depending on what she eats. Planning Technician Required: No Allergies latex [Latex] Allergy (Mild, Verified 04/11/23 09:06) RASH acetaminophen [From Percocet] Allergy (Verified 04/11/23 09:06) Stomach Upset oxycodone [From Percocet] Allergy (Verified 04/11/23 09:06) Stomach Upset diazepam [From Valium] Adverse Reaction (Verified 04/11/23 09:06) Fainting HPI RUQ Pain, GB Polyp HPI Details 37-year-old female with past medical history of MS, anxiety, depression is here today for initial consultation. Patient reports that she has been experiencing epigastric pain postprandially and sometimes not related to meals frequently. Patient reports that since she was diagnosed last year with MS she started to feel the symptoms. Patient reports abdominal pain and bloating. Reports that she is moving her bowels well without any issues. Patient reports epigastric burning with dyspepsia without dysphagia or odynophagia. Patient was seen in the ER in September of 2022, ultrasound showed gallbladder polyps without any other acute processes. Patient reports that she has not been taking anything for acid reflux. Reports that she has been moving her bowels well for the most part. Occasional postprandial abdominal bloating. Denies any nausea or vomiting. Denies melena, hematochezia, unintentional weight loss or ribbon like stools. [facility] Medical History Abnormal Pap smear of cervix Dyspareunia, female Pelvic pressure in female Frequency of urination Multiple sclerosis Exposure to TB Depression with anxiety Surgical History History of cranial surgery Hx of tubal ligation Family History Mother Asthma HTN (hypertension) HIV (human immunodeficiency virus infection) Father Asthma HTN (hypertension) Diabetes Paternal Uncle Lung cancer Family/Other Breast cancer Social History Household Members: Family Alcohol intake: current Alcohol intake frequency: a few times a month Alcohol type: beer, wine and hard liquor Patient Tobacco Use Status: Current everyday Tobacco user Tobacco use type: Cigarette Cigarette Packs Per Day: 1 Years Smoked: 28 service: No Current occupational status: disabled Female Reproductive History Menstrual Age of Menarche: 11 Review of Systems Const Denies weight gain and Denies weight loss ENT Reports no additional complaints, Denies dysphagia and Denies odynophagia Card Reports no additional complaints Resp Reports no additional complaints GI Reports abdominal pain (Epigastric), Denies belching, Denies melena, Reports bloating, Denies change in bowel habits, Denies dysphagia, Denies excessive flatus, Reports dyspepsia, Reports heartburn, Denies diarrhea, Denies loose stools, Denies nausea, Denies odynophagia and Denies vomiting Reports no additional complaints Musc Reports no additional complaints Neuro Reports no additional complaints Psych Reports no additional complaints Endo Reports no additional complaints Physical Exam Vital Signs: Last Vital Signs Pulse 83 04/11/23 09:05 BP 112/74 04/11/23 09:05 BMI result Body Mass Index 24.2 Const General: healthy appearing, no acute distress and well developed Nutritional Appearance: well nourished Orientation/consciousness: patient oriented x3 Resp Effort & Inspection: normal respiratory effort, able to speak in complete sentences, no tracheal deviation and symmetric chest movement Auscultation: clear to auscultation bilaterally Cardio Rate: regular rate GI Inspection: Yes normal to inspection and No distended Palpation (GI): Soft to palpation, not firm, nontender and No hepatosplenomegaly present Auscultation: normal bowel sounds General: Yes no CVA tenderness Back/Spine/Pelvis Back: no CVA tenderness Skin General skin exam: elasticity normal, turgor normal and dry skin Neuro General: patient oriented x3 Psych Appearance: grossly normal Mental Status: mental status grossly normal Assessment & Plan Assessment & Plan (1) GERD (gastroesophageal reflux disease): Code(s): K21.9 - Gastro-esophageal reflux disease without esophagitis Qualifiers: Esophagitis presence: esophagitis presence not specified Qualified Code(s): K21.9 - Gastro-esophageal reflux disease without esophagitis (2) Postprandial epigastric pain: Code(s): R10.13 - Epigastric pain Plan Patient will return to the office tomorrow for H pylori testing and treat empirically if positive. Unable to do the test today in the office as patient is chewing a gum. I will start her on omeprazole daily. Patient will start taking it after testing. Will rule out celiac. Discussed with patient avoiding dietary triggers and late night snacking. Staying upright for minimum 3 hours after meals discussed with patient. Patient will return to the office in 4-5 weeks, sooner on as needed basis. If patient continues to have epigastric discomfort and dyspepsia we will send her for upper endoscopy. She is agreeable to plan of care and verbalizes understanding of instructions. She was given the opportunity to ask questions and all questions answered. Thank you for allowing me to participate in her care Orders: Orders H Pylori Breath Test Today Transglutaminase IgA Today R10.9 - Unspecified abdominal pain Transglutaminase Ab IgG Today R10.9 - Unspecified abdominal pain Medications: New omeprazole 20 mg PO DAILY 30 tabs 2RF K21.9 - Gastro-esophageal reflux disease without esophagitis Coding Level of Care Code New Pt Level 3 (58155) Diagnoses Gastroesophageal reflux disease, unspecified whether esophagitis present K21.9 Esophagitis presence: esophagitis presence not specified Postprandial epigastric pain R10.13 Time Spent (min) 40 Comment 30 minutes spent with patient and additional 10 minutes spent reviewing her records
[2023-04-11 09:05] VITALS: BP 112/74; PULSE 83; BMI 24.2
== END 2023-04-11 09:45 | disposition home or self-care (01) ==
PROVIDERS: PCP Family Medicine; Visit Provider Nurse Practitioner Family
DX: K21.9 Gastro-esophageal reflux disease without esophagitis (principal)
CPT/HCPCS: 99203

== ENCOUNTER → 2023-04-11 08:47 | Outpatient (BNVA) | payer MEDICAID, SELFPAY | PROVIDERS: PCP Family Medicine; Visit Provider Nurse Practitioner Family | DX: K21.9 Gastro-esophageal reflux disease without esophagitis (principal); R10.13 Epigastric pain | CPT/HCPCS: 99212 ==

== ENCOUNTER 2023-04-12 08:46 | Outpatient (REF) | payer MEDICAID, SELFPAY ==
[2023-04-12 14:36] LABS: H Pylori Breath Test Negative (Negative)
== END 2023-04-12 08:47 | disposition home or self-care (01) ==
LOC: HO.LNP 08:46
PROVIDERS: PCP Family Medicine; Visit Provider Nurse Practitioner Family
DX: Z11.2 Encounter for screening for other bacterial diseases (principal)
CPT/HCPCS: 83013; 99211

== ENCOUNTER 2023-05-19 09:53 | Outpatient (REF) | payer MEDICAID, SELFPAY ==
[2023-05-23 08:04] LABS: Transglutaminase Ab IgG <1.0 U/mL; Transglutaminase IgA <1.0 U/mL
== END 2023-05-19 09:54 | disposition home or self-care (01) ==
LOC: HO.LAB 09:53
PROVIDERS: PCP Family Medicine; Visit Provider Nurse Practitioner Family
DX: K21.9 Gastro-esophageal reflux disease without esophagitis (principal); R10.13 Epigastric pain
CPT/HCPCS: 36415; 86364; 99212

== ENCOUNTER 2023-05-19 09:53 | Outpatient (AMB) | payer MEDICAID, SELFPAY ==
--- NOTE | 2023-05-19 10:09 | MHC.OFFVIS ---
Intake Vital Signs 05/19/23 10:12 Height 5 ft 3 in Weight 140 lb BMI 24.8 BP 104/59 L Blood Pressure Location Lt brachial Position Sitting Pulse 81 Intake Visit Reasons: 4 Weeks Follow Up Intake Note: Patient follow up for Hpylori results. ABD CT scan from [facility]. Patient cc: Nauseas, upper abdominal pain with some bloating, dizziness, fatigue and not a good appetite. Nurses Director Required: No Accompanied by: Self / Same As Patient Allergies latex [Latex] Allergy (Mild, Verified 05/19/23 10:08) RASH acetaminophen [From Percocet] Allergy (Verified 05/19/23 10:08) Stomach Upset oxycodone [From Percocet] Allergy (Verified 05/19/23 10:08) Stomach Upset diazepam [From Valium] Adverse Reaction (Verified 05/19/23 10:08) Fainting HPI 4 Weeks Follow Up HPI Details LAST VISIT GERD (gastroesophageal reflux disease) Postprandial epigastric pain Plan Patient will return to the office tomorrow for H pylori testing and treat empirically if positive. Unable to do the test today in the office as patient is chewing a gum. I will start her on omeprazole daily. Patient will start taking it after testing. Will rule out celiac. Discussed with patient avoiding dietary triggers and late night snacking. Staying upright for minimum 3 hours after meals discussed with patient. Patient will return to the office in 4-5 weeks, sooner on as needed basis. If patient continues to have epigastric discomfort and dyspepsia we will send her for upper endoscopy. She is agreeable to plan of care and verbalizes understanding of instructions. She was given the opportunity to ask questions and all questions answered. ? Thank you for allowing me to participate in her care Orders Orders H Pylori Breath Test Today Transglutaminase IgA Today R10.9 Transglutaminase Ab IgG Today R10.9 Medications New omeprazole 20 mg PO DAILY 30 tabs 2RF K21.9 TODAY'S VISIT Patient is here today for follow-up and to discuss lab results. H pylori negative. Patient never got her blood work done. On May 10 patient went to ER at [facility] for complaining of headache, nausea, dizziness, abdominal pain, generalized fatigue and body aches. While in the ER patient had negative viral swab, negative CT of the head and abdomen for any acute processes. Colon was filled with stool. Small hypodense cyst these most likely cysts seen in the liver. Patient continues to have epigastric discomfort. Patient states that she is not going to take any medications before we find out what is wrong with her. Patient did not try to take omeprazole. Patient reports that she has pain in her epigastric area all the time. Patient reports that the pain is not related to meals. Frequently she wakes up in the morning feeling nauseous with epigastric pain. Patient reports that she is moving her bowels. History of MS. Discussed with patient the importance of emptying her bowels and not always feeling like she empties them completely. Patient denies any melena, hematochezia, unintentional weight loss or ribbon like stools. Patient denies dyspepsia, dysphagia or odynophagia PFSH Medical History Abnormal Pap smear of cervix Dyspareunia, female Pelvic pressure in female Frequency of urination Multiple sclerosis Exposure to TB Depression with anxiety Surgical History History of cranial surgery Hx of tubal ligation Family History Mother Asthma HTN (hypertension) HIV (human immunodeficiency virus infection) Father Asthma HTN (hypertension) Diabetes Paternal Uncle Lung cancer Family/Other Breast cancer Social History Household Members: Family Alcohol intake: current Alcohol intake frequency: a few times a month Alcohol type: beer, wine and hard liquor Patient Tobacco Use Status: Current everyday Tobacco user Tobacco use type: Cigarette Cigarette Packs Per Day: 1 Years Smoked: 28 service: No Current occupational status: disabled Female Reproductive History Menstrual Age of Menarche: 11 Review of Systems Const Denies weight gain and Denies weight loss ENT Reports no additional complaints, Denies dysphagia and Denies odynophagia Card Reports no additional complaints Resp Reports no additional complaints GI Reports abdominal pain (Epigastric), Denies belching, Denies melena, Reports bloating, Denies change in bowel habits, Reports constipation, Denies dysphagia, Denies excessive flatus, Denies dyspepsia, Denies heartburn, Denies diarrhea, Denies loose stools, Denies nausea, Denies odynophagia and Denies vomiting Reports no additional complaints Musc Reports no additional complaints Neuro Reports no additional complaints Psych Reports no additional complaints Endo Reports no additional complaints Physical Exam Vital Signs: Last Vital Signs Pulse 81 05/19/23 10:12 BP 104/59 L 05/19/23 10:12 BMI result Body Mass Index 24.8 Const General: healthy appearing, no acute distress and well developed Nutritional Appearance: well nourished Orientation/consciousness: patient oriented x3 Resp Effort & Inspection: normal respiratory effort, able to speak in complete sentences, no tracheal deviation and symmetric chest movement Auscultation: clear to auscultation bilaterally Cardio Rate: regular rate GI Inspection: Yes normal to inspection and No distended Palpation (GI): Soft to palpation, not firm, nontender and No hepatosplenomegaly present Auscultation: normal bowel sounds General: Yes no CVA tenderness Back/Spine/Pelvis Back: no CVA tenderness Skin General skin exam: elasticity normal, turgor normal and dry skin Neuro General: patient oriented x3 Psych Appearance: grossly normal Mental Status: mental status grossly normal Affect: Irritable affect present Assessment & Plan Assessment & Plan (1) GERD (gastroesophageal reflux disease): Code(s): K21.9 - Gastro-esophageal reflux disease without esophagitis Qualifiers: Esophagitis presence: esophagitis presence not specified Qualified Code(s): K21.9 - Gastro-esophageal reflux disease without esophagitis (2) Epigastric abdominal pain: Code(s): R10.13 - Epigastric pain Plan Patient continues with epigastric pain not related to food. Most likely gastritis, esophagitis. Patient will be sent for upper endoscopy to rule out gastric or peptic ulcers, celiac. Patient was encouraged to get her blood work done today. I will also send her for HIDA scan. CT scan performed at [facility] did not visualize gallbladder completely. Even though unlikely cholecystitis, cholelithiasis or gallbladder dyskinesia as her symptoms are not related to food. There is a possibility of biliary colic. Patient was encouraged to try to take omeprazole in the morning and famotidine at bedtime, however patient refuses to do so. Patient insists on getting the test done 1st. Exam showed no tenderness, rebound tenderness however mild tenderness in epigastric area. Patient was encouraged to try to take MiraLax daily to help her empty her bowels better. With MS peristalsis could be effected and ability to emptying her bowels completely could be affected. I reviewed with patient her history and visit in the ER here at [facility] from 09/18/2022. Patient claims that she was in [place] and she never was in this hospital. However patient had ultrasound done and there is a note with lab work from that visit. Patient confirms her date of and full name. I will see patient after the procedure, sooner on as needed basis. Patient is agreeable to this plan and verbalizes understanding of instructions. She was given the opportunity to ask questions and all questions answered. Thank you for allowing me to participate in her care Orders: Orders NM hepatobiliary w pharm Today K21.9 - Gastro-esophageal reflux disease without esophagitis Medications: New famotidine (Pepcid) 20 mg PO BEDTIME 30 tabs 3RF K21.9 - Gastro-esophageal reflux disease without esophagitis Coding Level of Care Code Est Pt Level 4 (38479) Diagnoses Gastroesophageal reflux disease, unspecified whether esophagitis present K21.9 Esophagitis presence: esophagitis presence not specified Epigastric abdominal pain R10.13 Time Spent (min) 40 Comment 25 minutes spent with patient and additional 15 minutes spent reviewing her records
[2023-05-19 10:12] VITALS: BP 104/59; PULSE 81; BMI 24.8
== END 2023-05-19 11:03 | disposition home or self-care (01) ==
PROVIDERS: PCP Family Medicine; Visit Provider Nurse Practitioner Family
DX: K21.9 Gastro-esophageal reflux disease without esophagitis (principal); R10.13 Epigastric pain
CPT/HCPCS: 99214

== ENCOUNTER 2023-05-25 12:25 | Day surgery (SDC) | payer MEDICAID, SELFPAY ==
--- NOTE | 2023-05-24 09:07 | HO.ANESPROP2 ---
HPI - Anesthesia Eval Consult details Narrative: 37yo F for Upper Endoscopy PMFSH Active Problems Active Problems: All Active Problems (Updated 01/03/23 @ 15:15 by Edd Steven MD) Leukocytosis (Acute) Abnormal Pap smear of cervix (Acute) Dyspareunia, female (Acute) Pelvic pressure in female (Acute) Frequency of urination (Acute) Weight gain (Acute) Unintentional weight change (Acute) Screen for STD (sexually transmitted disease) (Acute) Hypomenorrhea (Acute) Vaginal discharge (Acute) Smoking (Acute) Encounter for annual routine gynecological examination (Acute) Contact with or exposure to other viral diseases (Acute) Past Medical History Medical History Abnormal Pap smear of cervix Dyspareunia, female Pelvic pressure in female Frequency of urination Multiple sclerosis Exposure to TB Depression with anxiety Family History Family History Mother Asthma HTN (hypertension) HIV (human immunodeficiency virus infection) Father Asthma HTN (hypertension) Diabetes Paternal Uncle Lung cancer Family/Other Breast cancer Surgical History Surgical History History of cranial surgery Hx of tubal ligation Social History Social History Household Members: Family Alcohol intake: current Alcohol intake frequency: a few times a month Alcohol type: beer, wine and hard liquor Patient Tobacco Use Status: Current everyday Tobacco user Tobacco use type: Cigarette Cigarette Packs Per Day: 1 Years Smoked: 28 service: No Current occupational status: disabled Meds Allergies Allergy/AdvReac Type Severity Reaction Status Date / Time latex [Latex] Allergy Mild RASH Verified 05/19/23 10:08 acetaminophen [From Percocet] Allergy Stomach Verified 05/19/23 10:08 Upset oxycodone [From Percocet] Allergy Stomach Verified 05/19/23 10:08 Upset diazepam [From Valium] AdvReac Fainting Verified 05/19/23 10:08 Home Medications Medication Instructions Recorded Confirmed Last Taken Type glatiramer 40 mg/mL subcutaneous 40 mg subcut DAILY 10/06/22 04/07/23 Unknown History syringe ([place]) albuterol sulfate 90 mcg/actuation 90 mcg inhalation DAILY PRN 01/03/23 04/07/23 Unknown History breath activated powder inhaler Wheezing amitriptyline 10 mg tablet 10 mg PO BEDTIME 01/03/23 04/07/23 Unknown History diphenhydramine HCl 25 mg capsule 25 mg PO DAILY PRN Allergy Symptoms 01/03/23 04/07/23 Unknown History (Benadryl) aspirin 81 mg tablet 81 mg PO DAILY 04/07/23 04/07/23 Unknown History Exam Pertinent Lab Results Pertinent Lab Results: Laboratory Tests 04/07/23 10:02 WBC 13.5 H Hgb 13.8 Hct 41.0 Plt Count 526 H Sodium 138 Potassium 4.0 Chloride 107 Carbon Dioxide 25 BUN 7 L Creatinine 0.65 Narrative Narrative: EKG 09/2022 Vent. Rate : 076 BPM Atrial Rate : 076 BPM P-R Int : 130 ms QRS Dur : 082 ms QT Int : 380 ms P-R-T Axes : -08 068 024 degrees QTc Int : 427 ms Normal sinus rhythm Normal ECG When compared with ECG of 01-APR-2015 20:59, No significant change was found Assessment and Plan Assessment Anesthesia Assessment: Chart Reviewed
--- NOTE | 2023-05-25 12:38 | HO.ANESPROP2 ---
[facility] Active Problems Active Problems: All Active Problems (Updated 01/03/23 @ 15:15 by Edd Steven MD) Leukocytosis (Acute) Abnormal Pap smear of cervix (Acute) Dyspareunia, female (Acute) Pelvic pressure in female (Acute) Frequency of urination (Acute) Weight gain (Acute) Unintentional weight change (Acute) Screen for STD (sexually transmitted disease) (Acute) Hypomenorrhea (Acute) Vaginal discharge (Acute) Smoking (Acute) Encounter for annual routine gynecological examination (Acute) Contact with or exposure to other viral diseases (Acute) Past Medical History Medical History Abnormal Pap smear of cervix Dyspareunia, female Pelvic pressure in female Frequency of urination Multiple sclerosis Exposure to TB Depression with anxiety Functional capacity: independent ambulation Patient : No Family History Family History Mother Asthma HTN (hypertension) HIV (human immunodeficiency virus infection) Father Asthma HTN (hypertension) Diabetes Paternal Uncle Lung cancer Family/Other Breast cancer Family history of problems with anesthesia: No Surgical History Surgical History History of cranial surgery Hx of tubal ligation Social History Social History Household Members: Family Alcohol intake: current Alcohol intake frequency: a few times a month Alcohol type: beer, wine and hard liquor Patient Tobacco Use Status: Current everyday Tobacco user Tobacco use type: Cigarette Cigarette Packs Per Day: 1 Years Smoked: 28 Advance Directives: No Advance Directives Information Provided: Yes service: No Current occupational status: disabled Meds Allergies Allergy/AdvReac Type Severity Reaction Status Date / Time latex [Latex] Allergy Mild RASH Verified 05/19/23 10:08 acetaminophen [From Percocet] Allergy Stomach Verified 05/19/23 10:08 Upset oxycodone [From Percocet] Allergy Stomach Verified 05/19/23 10:08 Upset diazepam [From Valium] AdvReac Fainting Verified 05/19/23 10:08 Home Medications Medication Instructions Recorded Confirmed Last Taken Type glatiramer 40 mg/mL subcutaneous 40 mg subcut DAILY 10/06/22 04/07/23 Unknown History syringe ([place]) albuterol sulfate 90 mcg/actuation 90 mcg inhalation DAILY PRN 01/03/23 04/07/23 Unknown History breath activated powder inhaler Wheezing amitriptyline 10 mg tablet 10 mg PO BEDTIME 01/03/23 04/07/23 Unknown History diphenhydramine HCl 25 mg capsule 25 mg PO DAILY PRN Allergy Symptoms 01/03/23 04/07/23 Unknown History (Benadryl) aspirin 81 mg tablet 81 mg PO DAILY 04/07/23 04/07/23 Unknown History Exam Airway Mallampati Class: II TM Dist: >3cm Neck ROM: Full Heart: RRR Lungs: CTA Assessment and Plan Assessment Anesthesia Assessment: Anesthesia Plan Discussed Final Anesthetic Review Family History of Problems with Anesthesia: No ASA Class: II Final Preanesthetic Review: Meds/Allgs Chart Reviewed, Consent Obtained/Reviewed and Anes Risks/Benef Reviewed Patient Risk: Low Procedure Risk: Low Anesthetic Plan Anesthetic Plan: MAC: Disposition: Standard PACU
--- NOTE | 2023-05-25 12:50 | MHC.SHP ---
Pre-Procedural Eval Section A - 24 Hr Update-Section A only Date of Service: 05/25/23 The patient has been examined within 24 hours of the surgical procedure. The History & Physical has been completed within 30 days and I have reviewed it.: Yes Section B - Complete if H&P > 30 days Chief Complaint: Epigastric pain Allergies: Allergies Allergy/AdvReac Type Severity Reaction Status Date / Time latex [Latex] Allergy Mild RASH Verified 05/19/23 10:08 acetaminophen [From Percocet] Allergy Stomach Verified 05/19/23 10:08 Upset oxycodone [From Percocet] Allergy Stomach Verified 05/19/23 10:08 Upset diazepam [From Valium] AdvReac Fainting Verified 05/19/23 10:08 Plan Diagnosis/Plan: Unchanged I have reviewed the history and physical and performed a pertinent physical examination on my patient. No changes have occurred unless specified. Time Spent With Patient Time: Total time managing care of this patient today ____ minutes.
[2023-05-25 12:54] VITALS: BMI 23.6
[2023-05-25 12:59] VITALS: BMI 23.6
[2023-05-25 13:03] VITALS: BP 106/63; PULSE 81; RESP 16; TEMP 36.2; O2SAT 99
--- NOTE | 2023-05-25 13:30 | P.OP_ITS ---
Operative Note Operative Note Date of Service: 05/25/23 Narrative: Procedure: Esophagogastroduodenoscopy Endoscopist: Lesli Gold MD Indication: Epigastric pain Anesthesia Provider: Dr Sonia Dominguez Anesthesia Type: MAC ?? EGD Procedure:?? The procedure, indications, preparation and potential complications were reviewed with the patient, who indicated understanding and gave written informed consent to proceed. A physical exam was performed. The endoscope was introduced through the mouth, and advanced to the second part of duodenum. The mucosa was carefully examined on slow withdrawal of the endoscope. The patient tolerated the procedure well. There were no immediate complications.? ? EGD Findings:? * Esophagus:? Normal mucosa noted in the entire esophagus. The Z line was at 35 cm. * Stomach:? Normal mucosa was noted in the stomach. Random gastric biopsies were taken to rule out H Pylori infection. * Duodenum:? Normal mucosa was noted in the whole of the examined duodenum. Cold biopsies were taken from duodenal bulb and second portion of the duodenum to rule out celiac sprue. ? EGD Impressions:? * Normal esophagus * Normal stomach (biopsy) * Normal duodenum (biopsy) ?? Recommendations:?? * Follow biopsy results. Our office will call or send a letter with results within 7-10 days. * Increase omeprazole 20 to twice a day. * If H pylori +, patient will be prescribed eradication therapy followed by test of cure. * Avoid smoking and NSAIDs. Above has been reviewed with the patient.
[2023-05-25 13:35] VITALS: BP 106/69; PULSE 86; RESP 16; TEMP 36.5; O2SAT 99
[2023-05-25 13:50] VITALS: BP 123/78; PULSE 82; RESP 16; O2SAT 98
[2023-05-25 14:05] VITALS: BP 109/71; PULSE 72; RESP 18; TEMP 36.3; O2SAT 99
--- NOTE | 2023-05-25 14:11 | HO.POSTANES ---
Post Anesthesia Evaluation Post Anesthesia Evaluation Date of Service: 05/25/23 Vital Signs: Vital Signs Temp Pulse Resp BP Pulse Ox O2 Del Method 05/25/23 14:05 97.3 F 72 18 109/71 99 Room Air 05/25/23 13:50 82 16 123/78 98 Room Air 05/25/23 13:35 97.7 F 86 16 106/69 99 Room Air 05/25/23 13:03 97.2 F 81 16 106/63 99 Room Air Anesthesia: Monitored Mental Status: Awake Pain Control: Satisfactory Nausea/Vomiting: None Hydration: Adequate Anesthesia-Related Issues: No Anes. Related Issues
== END 2023-05-25 14:30 | disposition home or self-care (01) ==
PROVIDERS: PCP Family Medicine; Visit Provider Internal Medicine
PROC: 0DJ08ZZ Inspection of Upper Intestinal Tract, Via Natural or Artificial Opening Endoscopic (ICD-10-PCS; CPT 43235; principal; 2023-05-25 14:40)
DX: K29.70 Gastritis, unspecified, without bleeding (principal); K21.9 Gastro-esophageal reflux disease without esophagitis; F17.210 Nicotine dependence, cigarettes, uncomplicated
CPT/HCPCS: 43239; 88305; 88313; 88342; J2704

== ENCOUNTER → 2023-05-25 12:25 | Outpatient (BNV) | payer MEDICAID, SELFPAY | PROVIDERS: PCP Family Medicine; Visit Provider Internal Medicine | DX: R10.13 Epigastric pain (principal) | CPT/HCPCS: 43239 ==

== ENCOUNTER 2023-06-12 09:45 | Outpatient (AMB) | payer MEDICAID, SELFPAY ==
--- NOTE | 2023-06-12 09:52 | A.OFFVIS_ITS ---
Intake Vital Signs 06/12/23 09:54 Height 5 ft 3 in Weight 138 lb 14.259 oz BMI 24.6 BP 99/54 L Blood Pressure Location Lt brachial Position Sitting Pulse 73 Pulse Source Pulse Oximeter Pulse Oximetry (%) 99 Oxygen Delivery Method Room Air Intake Visit Reasons: S/P EGD; [facility] Intake Note: Pt here for follow up, no concerns Information Interpreted: non-clinical & clinical Accompanied by: Self / Same As Patient Allergies latex [Latex] Allergy (Mild, Verified 06/12/23 09:53) RASH acetaminophen [From Percocet] Allergy (Verified 06/12/23 09:53) Stomach Upset oxycodone [From Percocet] Allergy (Verified 06/12/23 09:53) Stomach Upset diazepam [From Valium] Adverse Reaction (Verified 06/12/23 09:53) Fainting HPI S/P EGD; [facility] HPI Details LAST VISIT GERD (gastroesophageal reflux disease) Epigastric abdominal pain Plan Patient continues with epigastric pain not related to food. Most likely gas tritis, esophagitis. Patient will be sent for upper endoscopy to rule out gastric or peptic ulcers, celiac. Patient was encouraged to get her blood work done today. I will also send her for HIDA scan. CT scan performed at [place] did not visualize gallbladder completely. Even though unlikely cholecystitis, cholelithiasis or gallbladder dyskinesia as her symptoms are not related to food. There is a possibility of biliary colic. Patient was encouraged to try to take omeprazole in the morning and famotidine at bedtime, however patient refuses to do so. Patient insists on getting the test done 1st. Exam showed no tenderness, rebound tenderness however mild tenderness in epigastric area. Patient was encouraged to try to take MiraLax daily to help her empty her bowels better. With MS peristalsis could be effected and ability to emptying her bowels completely could be affected. I reviewed with patient her history and visit in the ER here at [facility] from 09/18/2022. Patient claims that she was in [place] and she never was in this hospital. However patient had ultrasound done and there is a note with lab work from that visit. Patient confirms her date of and full name. I will see patient after the procedure, sooner on as needed basis. Patient is agreeable to this plan and verbalizes understanding of instructions. She was given the opportunity to ask questions and all questions answered. ? Thank you for allowing me to participate in her care Orders Orders NM hepatobiliary w pharm Today K21.9 Medications New famotidine (Pepcid) 20 mg PO BEDTIME 30 tabs 3RF K21.9 UPPER ENDOSCOPY EGD Findings:? * Esophagus:? Normal mucosa noted in the entire esophagus. The Z line was at 35 cm. * Stomach:? Normal mucosa was noted in the stomach. Random gastric biopsies were taken to rule out H Pylori infection. * Duodenum:? Normal mucosa was noted in the whole of the examined duodenum. Cold biopsies were taken from duodenal bulb and second portion of the duodenum to rule out celiac sprue. ? EGD Impressions:? * Normal esophagus * Normal stomach (biopsy) * Normal duodenum (biopsy)?? Recommendations:?? * Follow biopsy results. Our office will call or send a letter with results within 7-10 days. * Increase omeprazole 20 to twice a day. * If H pylori +, patient will be prescribed eradication therapy followed by test of cure. * Avoid smoking and NSAIDs. * PATHOLOGY RESULTS Addendum #1 (B): Immunostain for H. pylori is negati ve with appropriate control. Electronically Signed By: Marsha Hopper 05/30/23 1401 Diagnosis A. Duodenum, biopsy: Duodenal mucosa with predominantly preserved villi and no specific change. B. Stomach, random, biopsy: Gastric antral mucosa with focal minimal chronic inactive inflammation; negative for intestinal metaplasia and dysplasia (see comment). Comment Immunostain for H. pylori on B is pending; addendum to follow TODAY'S VISIT: Patient is here today for follow-up and to discuss upper endoscopy results. Upper endoscopy results discussed with patient his acid procedure Dr. Gold send script for omeprazole 20 mg twice a day. Patient states that she has not started taking it as she did not know the directions of how she should take it. Patient continues to have epigastric discomfort postprandially with occasional acid reflux and dyspepsia. Patient states that she is avoiding certain food, however she continues to smoke and is taking ibuprofen. Mild chronic inactive inflammation seen in the stomach. No esophagitis, no H pylori. Celiac disease ruled out. [facility] Medical History Abnormal Pap smear of cervix Dyspareunia, female Pelvic pressure in female Frequency of urination Multiple sclerosis Exposure to TB Depression with anxiety Surgical History History of cranial surgery Hx of tubal ligation Family History Mother Asthma HTN (hypertension) HIV (human immunodeficiency virus infection) Father Asthma HTN (hypertension) Diabetes Paternal Uncle Lung cancer Family/Other Breast cancer Social History Household Members: Family Alcohol intake: current Alcohol intake frequency: a few times a month Alcohol type: beer, wine and hard liquor Patient Tobacco Use Status: Current everyday Tobacco user Tobacco use type: Cigarette Cigarette Packs Per Day: 1 Cigarettes Per Day: 10 Years Smoked: 28 service: No Current occupational status: disabled Female Reproductive History Menstrual Age of Menarche: 11 Review of Systems Const Denies weight gain and Denies weight loss ENT Reports no additional complaints, Denies dysphagia and Denies odynophagia Card Reports no additional complaints Resp Reports no additional complaints GI Denies abdominal pain, Denies belching, Denies melena, Denies bloating, Denies change in bowel habits, Denies dysphagia, Denies excessive flatus, Reports dyspepsia (Occasional), Reports heartburn, Denies diarrhea, Denies loose stools, Denies nausea, Denies odynophagia and Denies vomiting Reports no additional complaints Musc Reports no additional complaints Neuro Reports no additional complaints Psych Reports no additional complaints Endo Reports no additional complaints Physical Exam Vital Signs: Last Vital Signs Pulse 73 06/12/23 09:54 BP 99/54 L 06/12/23 09:54 Pulse Ox 99 06/12/23 09:54 Oxygen Delivery Method Room Air 06/12/23 09:54 BMI result Body Mass Index 24.6 Const General: healthy appearing, no acute distress and well developed Nutritional Appearance: well nourished Orientation/consciousness: patient oriented x3 Resp Effort & Inspection: normal respiratory effort, able to speak in complete sentences, no tracheal deviation and symmetric chest movement Auscultation: clear to auscultation bilaterally Cardio Rate: regular rate GI Inspection: Yes normal to inspection and No distended Palpation (GI): Soft to palpation, not firm, nontender and No hepatosplenomegaly present Auscultation: normal bowel sounds General: Yes no CVA tenderness Back/Spine/Pelvis Back: no CVA tenderness Skin General skin exam: elasticity normal, turgor normal and dry skin Neuro General: patient oriented x3 Psych Appearance: grossly normal Mental Status: mental status grossly normal Assessment & Plan Assessment & Plan (1) GERD (gastroesophageal reflux disease): Code(s): K21.9 - Gastro-esophageal reflux disease without esophagitis Qualifiers: Esophagitis presence: without esophagitis Qualified Code(s): K21.9 - Gastro-esophageal reflux disease without esophagitis (2) Epigastric abdominal pain: Code(s): R10.13 - Epigastric pain Plan As mentioned above in HPI patient was diagnosed with minimal chronic inflammation. Normal esophagus and normal duodenum. Patient was instructed on how to take omeprazole, before breakfast and before dinner. Continue avoiding dietary trigger send late night snacking. Smoking cessation encouraged. Staying upright for minimum 3 hours after meals discussed with patient. She will go for HIDA scan as she continues to have occasional right upper quadrant pain after meals. I will see her in 3 months, sooner on as needed basis. Patient is agreeable to this plan and verbalizes understanding of instructions. She was given the opportunity to ask questions and all questions answered. Thank you for allowing me to participate in her care Coding Level of Care Code Est Pt Level 3 (04734) Diagnoses Gastroesophageal reflux disease without esophagitis K21.9 Esophagitis presence: without esophagitis Epigastric abdominal pain R10.13 Time Spent (min) 30 Comment 20 minutes spent with patient and additional 10 minutes spent reviewing her records
[2023-06-12 09:54] VITALS: BP 99/54; PULSE 73; O2SAT 99; BMI 24.6
== END 2023-06-12 10:13 | disposition home or self-care (01) ==
PROVIDERS: PCP Family Medicine; Visit Provider Nurse Practitioner Family
DX: K21.9 Gastro-esophageal reflux disease without esophagitis (principal); R10.13 Epigastric pain
CPT/HCPCS: 99213

== ENCOUNTER → 2023-06-12 09:45 | Outpatient (BNVA) | payer MEDICAID, SELFPAY | PROVIDERS: PCP Family Medicine; Visit Provider Nurse Practitioner Family | DX: R10.13 Epigastric pain (principal); K21.9 Gastro-esophageal reflux disease without esophagitis | CPT/HCPCS: 99212 ==

== ENCOUNTER → 2023-06-19 10:56 | Outpatient (REF) | payer MEDICAID, SELFPAY ==
--- NOTE | ~2023-06-19 | NM_ITS ---
EXAMINATION: BILIARY TRACT IMAGING STUDY WITH [facility]CK CLINICAL INFORMATION: Gastroesophageal reflux disease without esophagitis. Right upper quadrant pain.. COMPARISON: Abdominal ultrasound done on 09/18/2022. TECHNIQUE: Serial gamma scintillation camera images were obtained over the abdomen for a total observation period of 60 minutes following the intravenous administration of 5 mCi Tc-99m mebrofenin. FINDINGS: There is good concentration of activity in the liver by 5 minutes post injection. Biliary activity is visualized by 10 minutes. The gallbladder is well visualized by 15 minutes. Small bowel is well visualized by 82 minutes. At 60 minutes post radiopharmaceutical injection, a 30-minute infusion of 1.23 micrograms Sincalide was then begun and an additional 40 minutes of images were obtained. There is good emptying of the gallbladder. By the end of the study there is good clearance of activity from the liver and visualization of diffuse small bowel activity. The calculated gallbladder ejection fraction is 95% (Normal range of gallbladder ejection fraction is between 35-80%; GBEF <35% is considered biliary hypokinesia and >80% is considered biliary hyperkinesia; Ref. #1-Clinical Journal of Gastroenterology (2020) 14:1308?1317; Ref.#2-[email or web address]). NM/NM hepatobiliary w pharm IMPRESSION: Visualization of the gallbladder is evidence of a patent cystic duct and strong evidence against the diagnosis of acute cholecystitis. The common bile duct is patent. Gallbladder emptying and ejection fraction are abnormal. Liver function appears normal.
[2023-06-19 11:48] LABS: HCG Quantitative < 2 mIU/mL
== END ==
LOC: HO.NUCMED 10:56
PROVIDERS: PCP Family Medicine; Visit Provider Nurse Practitioner Family
DX: K21.9 Gastro-esophageal reflux disease without esophagitis (principal); R10.11 Right upper quadrant pain; R10.2 Pelvic and perineal pain
CPT/HCPCS: 36415; 78227; 84702; A9537

== ENCOUNTER 2023-09-12 09:54 | Outpatient (AMB) | payer MEDICAID, SELFPAY ==
--- NOTE | 2023-09-12 09:56 | A.OFFVIS_ITS ---
Vital Signs 09/12/23 09:59 Height 5 ft 3 in Weight 133 lb 9.602 oz BMI 23.7 BP 102/60 Blood Pressure Location Lt brachial Position Sitting Pulse 86 Pulse Source Pulse Oximeter Pulse Oximetry (%) 100 Oxygen Delivery Method Room Air Intake Visit Reasons: 3 month follow up Intake Note: Evelyn presents in office today for a scheduled 3 mos FUV. CC: Pt reports that their condition has remained stable. Pt has not noticed any signs of improvement, nor have they noticed any significant new concerns or sx. 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 Normal esophagus and normal duodenum. Patient was instructed on how to take omeprazole, before breakfast and before dinner. Continue avoiding dietary trigger send late night snacking. Smoking cessation encouraged. Staying upright for minimum 3 hours after meals discussed with patient. She will go for HIDA scan as she continues to have occasional right upper quadrant pain after meals. I will see her in 3 months, sooner on as needed basis. Patient is agreeable to this plan and verbalizes understanding of instructions. She was given the opportunity to ask questions and all questions answered. TODAY'S VISIT Patient is here today for follow-up. Patient reports that she continues to have epigastric pain postprandially. Patient also reports abdominal bloating. Patient is not taking any PPI would rather not to take any medications. Currently patient is taking amitriptyline 10 mg at bedtime, however she feels like it has not really helping her with dyspepsia. HIDA scan done and patient has biliary hyperkinesia. Usually not recommended for surgical procedure like cholecystectomy as her symptoms could get worse after the surgery patient denies any nausea or vomiting. Patient reports occasional dyspepsia without dysphagia or odynophagia. Patient denies any melena, hematochezia. Patient reports that she has been moving her bowels without any issues. [facility] Medical History Abnormal Pap smear of cervix Dyspareunia, female Pelvic pressure in female Frequency of urination Multiple sclerosis Exposure to TB Depression with anxiety Surgical History History of cranial surgery Hx of tubal ligation Family History Mother Asthma HTN (hypertension) HIV (human immunodeficiency virus infection) Father Asthma HTN (hypertension) Diabetes Paternal Uncle Lung cancer Family/Other Breast cancer Social History Household Members: Family Alcohol intake: current Alcohol intake frequency: a few times a month Alcohol type: beer, wine and hard liquor Patient Tobacco Use Status: Current everyday Tobacco user Tobacco use type: Cigarette Cigarette Packs Per Day: 1 Cigarettes Per Day: 10 Years Smoked: 28 service: No Current occupational status: disabled Female Reproductive History Menstrual Age of Menarche: 11 Review of Systems Const Denies weight gain and Denies weight loss ENT Reports no additional complaints, Denies dysphagia and Denies odynophagia Card Reports no additional complaints Resp Reports no additional complaints GI Denies abdominal pain, Denies belching, Denies melena, Denies bloating, Denies change in bowel habits, Denies dysphagia, Denies excessive flatus, Reports dyspepsia (Occasional), Reports heartburn, Denies diarrhea, Denies loose stools, Denies nausea, Denies odynophagia and Denies vomiting Reports no additional complaints Musc Reports no additional complaints Neuro Reports no additional complaints Psych Reports no additional complaints Endo Reports no additional complaints Physical Exam Vital Signs: Last Vital Signs Pulse 86 09/12/23 09:59 BP 102/60 06/25/24 09:59 Pulse Ox 100 09/12/23 09:59 Oxygen Delivery Method Room Air 09/12/23 09:59 BMI result Body Mass Index 23.7 Const General: healthy appearing, no acute distress and well developed Nutritional Appearance: well nourished Orientation/consciousness: patient oriented x3 Resp Effort & Inspection: normal respiratory effort, able to speak in complete sentences, no tracheal deviation and symmetric chest movement Auscultation: clear to auscultation bilaterally Cardio Rate: regular rate GI Inspection: Yes normal to inspection and No distended Palpation (GI): Soft to palpation, not firm, nontender and No hepatosplenomegaly present Auscultation: normal bowel sounds General: Yes no CVA tenderness Back/Spine/Pelvis Back: no CVA tenderness Skin General skin exam: elasticity normal, turgor normal and dry skin Neuro General: patient oriented x3 Psych Appearance: grossly normal Mental Status: mental status grossly normal Results Reviewed Results Reviewed: HIDA SCAN FINDINGS: There is good concentration of activity in the liver by 5 minutes post injection. Biliary activity is visualized by 10 minutes. The gallbladder is well visualized by 15 minutes. Small bowel is well visualized by 82 minutes. At 60 minutes post radiopharmaceutical injection, a 30-minute infusion of 1.23 micrograms Sincalide was then begun and an additional 40 minutes of images were obtained. There is good emptying of the gallbladder. By the end of the study there is good clearance of activity from the liver and visualization of diffuse small bowel activity. The calculated gallbladder ejection fraction is 95% (Normal range of gallbladder ejection fraction is between 35-80%; GBEF <35% is considered biliary hypokinesia and >80% is considered biliary hyperkinesia; Ref. #1-Clinical Journal of Gastroenterology (2020) 14:1308?1317; Ref.#2-[email or web address]-[email or web address]-[email or web address] [email or web address]). NM/NM hepatobiliary w pharm IMPRESSION: Visualization of the gallbladder is evidence of a patent cystic duct and strong evidence against the diagnosis of acute cholecystitis. The common bile duct is patent. Gallbladder emptying and ejection fraction are abnormal. Liver function appears normal. Assessment & Plan Assessment & Plan (1) GERD (gastroesophageal reflux disease): Code(s): K21.9 - Gastro-esophageal reflux disease without esophagitis Qualifiers: Esophagitis presence: esophagitis presence not specified Qualified Code(s): K21.9 - Gastro-esophageal reflux disease without esophagitis (2) Epigastric abdominal pain: Code(s): R10.13 - Epigastric pain (3) Constipation: Code(s): K59.00 - Constipation, unspecified Qualifiers: Constipation type: slow transit constipation Qualified Code(s): K59.01 - Slow transit constipation (4) Biliary and gallbladder disorder: Code(s): K83.9 - Disease of biliary tract, unspecified Plan Patient may take famotidine on as needed basis. Avoid dietary triggers and late night snacking. Staying upright for minimum 3 hours after meals discussed with patient. Patient reports that her symptoms are not always related to meals so we will not refer to General surgery. However patient was diagnosed with biliary hyperkinesia on HIDA scan. If patient will have symptoms related to meals we will send her for consult. Patient was instructed to avoid meals high in fat. I will see patient in 6 months, sooner on as needed basis. She is a greeable to this plan and verbalizes understanding of instructions. She was given the opportunity to ask questions and all questions answered. Thank you for allowing me to participate in her care Medications: New famotidine (Pepcid) 20 mg PO BEDTIME 30 tabs 3RF K21.9 - Gastro-esophageal r eflux disease without esophagitis Coding Level of Care Code Est Pt Level 4 (32369) Diagnoses Gastroesophageal reflux disease, unspecified whether esophagitis present K21.9 Esophagitis presence: esophagitis presence not specified Epigastric abdominal pain R10.13 Slow transit constipation K59.01 Constipation type: slow transit constipation Biliary and gallbladder disorder K83.9 Time Spent (min) 35 Comment 20 minutes spent with patient and additional 15 minutes spent reviewing her records
[2023-09-12 09:59] VITALS: BP 102/60; PULSE 86; O2SAT 100; BMI 23.7
== END 2023-09-12 10:23 | disposition home or self-care (01) ==
PROVIDERS: PCP Family Medicine; Visit Provider Nurse Practitioner Family
DX: K21.9 Gastro-esophageal reflux disease without esophagitis (principal); R10.13 Epigastric pain; K59.01 Slow transit constipation; K83.9 Disease of biliary tract, unspecified
CPT/HCPCS: 99214

== ENCOUNTER → 2023-09-12 09:54 | Outpatient (BNVA) | payer MEDICAID, SELFPAY | PROVIDERS: PCP Family Medicine; Visit Provider Nurse Practitioner Family | DX: K21.9 Gastro-esophageal reflux disease without esophagitis (principal); R10.13 Epigastric pain; K59.01 Slow transit constipation; K83.9 Disease of biliary tract, unspecified | CPT/HCPCS: 99212 ==

== ENCOUNTER 2023-09-29 09:18 | Outpatient (REF) | payer MEDICAID, SELFPAY | END 2023-09-29 09:19 | disposition home or self-care (01) | LOC: HO.SH 09:18 | PROVIDERS: Visit Provider Family Medicine | DX: Z01.118 Encounter for examination of ears and hearing with other abnormal findings (principal); H90.72 Mixed conductive and sensorineural hearing loss, unilateral, left ear, with unrestricted hearing on the contralateral side | CPT/HCPCS: 92557; 92567 ==

== ENCOUNTER 2023-10-11 10:08 | Outpatient (AMB) | payer MEDICAID, SELFPAY ==
--- NOTE | 2023-10-11 10:10 | MHC.OFFVIS ---
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 Doing well with no concerns: I'm having pain on my left ovary . Also reports frequent BV with her partner. Wondering if she can use alum to treat BV. Also asking if her tubal clips are still in place and how can she be sure. She tries to eat healthy and stays active. Regular monthly menses. concerned-last two cycles were shorter now two verses four days. She denies vaginal itching and irritation. STI screening offered; she accepts. Denies family history of ovarian or colon cancer. FH breast cancer. Last pap smear 2022. [facility] Medical History (Updated 10/11/23 @ 10:47 by Brittany Mtz CNM) Abnormal Pap smear of cervix Dyspareunia, female Frequency of urination Multiple sclerosis Exposure to TB Depression with anxiety Surgical History History of cranial surgery Hx of tubal ligation Family History Mother Asthma HTN (hypertension) HIV (human immunodeficiency virus infection) Father Asthma HTN (hypertension) Diabetes Paternal Uncle Lung cancer Family/Other Breast cancer Social History Household Members: Family Alcohol intake: current Alcohol intake frequency: a few times a month Alcohol type: beer, wine and hard liquor Patient Tobacco Use Status: Current everyday Tobacco user Tobacco use type: Cigarette Cigarette Packs Per Day: 1 Cigarettes Per Day: 10 Years Smoked: 28 service: No Current occupational status: disabled Female Reproductive History Menstrual Age of Menarche: 11 Duration of menses: 3-5 days Date of last menstrual period: 09/19/23 control method: permanent sterilization Permanent Sterilization: BTL Total pregnancies: 5 Full term: 3 Number of Living Children: 3 Ab spontaneous: 2 Date of last pap smear: 10/06/22 (ascus +hpv) Review of Systems Const All systems reviewed & are unremarkable except as noted in HPI and below Reports as per HPI Eyes Reports no additional complaints ENT Reports no additional complaints Card Reports no additional complaints Resp Reports no additional complaints GI Reports as per HPI and Reports no additional complaints Reports as per HPI Musc Reports no additional complaints Skin/Breast Reports as per HPI Neuro Reports no additional complaints Psych Reports no additional complaints Endo Reports no additional complaints Bandar/Lymph Reports no additional complaints Aller/Immun Reports no additional complaints Physical Exam Vital Signs: Last Vital Signs BP 100/60 10/11/23 10:11 BMI result Body Mass Index 23.2 Const General: cooperative, healthy appearing, no acute distress, well developed and alert Orientation/consciousness: patient oriented x3 HEENT Head: Yes normal to inspection Eyes General: appearance normal, both eyes and all related structures Neck Neck: Yes normal visual inspection Thyroid: Thyroid normal Chest Chest palpation & inspection: normal inspection of the chest and other (no puckering, dimpling, peau de orange, retraction, discharge, masses) Breast/axilla inspection: normal inspection of the breasts Breast/axilla palpation: normal palpation of the breasts Resp Effort & Inspection: normal respiratory effort GI Inspection: Yes normal to inspection Palpation (GI): Soft to palpation Rectal Exam - Female: deferred General: Yes bladder normal to palpation External Female Exam: normal external appearance and normal appearance of the urethra Speculum Exam - Vagina: normal appearance of the vagina, normal palpation and abnormal vaginal discharge (thick white) Speculum Exam - Cervix: normal appearance of the cervix and normal palpation Bimanual exam- vagina & uterus: normal bimanual exam, normal palpation, uterine size normal, bladder normal to palpation, normal palpation and non-tender Bimanual Exam- Adnexa, other: no masses Skin General skin exam: no rashes or lesions noted Rashes: no rashes Neuro General: patient oriented x3 Cognition (Neuro): normal cognition Extrem General: Yes normal to inspection Psych Attitude: cooperative Thought process: Normal thought process present Results AMB Test Urine AMB Test Urine Negative Last Edit by KARL Patel on 10/11/23 11:41 AMB Urinalysis, Automated UA Leukoctes 0 Jhon/uL Last Edit by KARL Patel on 10/11/23 11:41 UA Nitrite Negative Last Edit by Lizbeth Rios [facility] on 10/11/23 11:41 UA Urobilinogen 0 mg/dL Last Edit by Lizbeth Rios Albaro on 10/11/23 11:41 UA Protein 0 mg/dL Last Edit by Lizbeth Rios [facility] on 10/11/23 11:41 UA pH 6.0 Last Edit by Lizbeth Rios Albaro on 10/11/23 11:41 UA Blood 0 José Miguel/uL Last Edit by Lizbeth Rios Albaro on 10/11/23 11:41 UA Specific [place] 1.015 Last Edit by Lizbeth Rios Albaro on 10/11/23 11:41 UA Ketone Negative Last Edit by Lizbeth Rios [facility] on 10/11/23 11:41 UA Bilirubin 0 mg/dL Last Edit by Lizbeth Rios Albaro on 10/11/23 11:41 UA Glucose 0 mg/dL Last Edit by Lizbeth Rios [facility] on 10/11/23 11:41 Results Reviewed Results Reviewed: Laboratory Last Values Urine pH (Auto) 6.0 10/11/23 11:39 Specific [place] (Auto) 1.015 10/11/23 11:39 Urine Protein (Auto) 0 mg/dL 10/11/23 11:39 Glucose (UA)(Auto) 0 mg/dL 10/11/23 11:39 Urine Ketones (Auto) Negative 10/11/23 11:39 Urine Blood (Auto) 0 José Miguel/uL 10/11/23 11:39 Urine Nitrite (Auto) Negative 10/11/23 11:39 Urine Bilirubin (Auto) 0 mg/dL 10/11/23 11:39 Urine Urobilinogen (Auto) 0 mg/dL 10/11/23 11:39 Leukocyte Esterase (Auto) 0 Jhon/uL 10/11/23 11:39 Tst Clinic Negative 10/11/23 11:39 Assessment & Plan Assessment & Plan (1) Encounter for well woman exam with routine gynecological exam: Code(s): Z01.419 - Encounter for gynecological examination (general) (routine) without abnormal findings Category: Medical (2) Pelvic pain: Code(s): R10.2 - Pelvic and perineal pain Category: Medical Plan Discussed: Current recommendations for pap smears per ASCCP guidelines. Repeat Pap. Breast awareness and periodic breast exams. Maintain a healthy lifestyle including a well balanced diet and routine exercise. No testing is recommended to check on tubal ligation clips. If late for menses ever or periods are off she should do a home test as tubal ligations are not 100% protected for . Alum product not recommended for the treatment of BV, ot to use. Workup including a pelvic ultrasound, cervical cultures and follow up in person for test results. BV protocol copy of boric acid available and reviewed today. Patient verbalizes understanding and agrees to the plan of care. She was given opportunity to ask questions and all questions were answered to the best of my ability. 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 This note is constructed using voice recognition software. While every effort has been made to ensure accuracy, technical support 1 software engineer errors may have been included. Orders: Orders Hepatitis B Core Antibody Today Z20.2 - Contact with and (suspected) exposure to infections with a predominantly sexual mode of transmission Syphilis Screen Today Z20.2 - Contact with and (suspected) exposure to infections with a predominantly sexual mode of transmission US pelvic and transvaginal Today R10.2 - Pelvic and perineal pain PAP + HPV E6/E7 rfx 18/45 Today R87.619 - Unspecified abnormal cytological findings in specimens from cervix uteri, Z01.419 - Encounter for gynecological examination (general) (routine) without abnormal findings Bacterial Vaginosis Panel Today R10.2 - Pelvic and perineal pain CT NG by PCR Today R10.2 - Pelvic and perineal pain AMB HCG Urine Test Today R10.2 - Pelvic and perineal pain AMB Urinalysis Automated Today R10.2 - Pelvic and perineal pain HIV Ab/Ag Today Z20.2 - Contact with and (suspected) exposure to infections with a predominantly sexual mode of transmission Hepatitis C Antibody Reflex Today Z20.2 - Contact with and (suspected) exposure to infections with a predominantly sexual mode of transmission Coding Level of Care Code Est Pt Prev Care 18-39y(49560) Diagnoses Encounter for well woman exam with routine gynecological exam Z01.419 Pelvic pain R10.2
[2023-10-11 10:11] VITALS: BP 100/60; BMI 23.2
== END 2023-10-11 11:05 | disposition home or self-care (01) ==
PROVIDERS: PCP Family Medicine; Visit Provider Advanced Practice Midwife
DX: Z01.419 Encounter for gynecological examination (general) (routine) without abnormal findings (principal); R10.2 Pelvic and perineal pain
CPT/HCPCS: 99395

== ENCOUNTER 2023-10-11 10:08 | Outpatient (REF) | payer MEDICAID, SELFPAY | END 2023-10-11 10:09 | disposition home or self-care (01) | LOC: HO.LAB 10:08 | PROVIDERS: PCP Family Medicine; Visit Provider Advanced Practice Midwife | DX: Z20.2 Contact with and (suspected) exposure to infections with a predominantly sexual mode of transmission (principal); R10.2 Pelvic and perineal pain | CPT/HCPCS: 81003; 81025; 99395 ==

== ENCOUNTER 2023-10-11 10:51 | Outpatient (REF) | payer MEDICAID, SELFPAY | END 2023-10-11 10:52 | disposition home or self-care (01) | LOC: HO.LNP 10:51 | PROVIDERS: Visit Provider Advanced Practice Midwife | DX: Z13.89 Encounter for screening for other disorder (principal) ==

== ENCOUNTER 2023-10-11 11:19 | Outpatient (REF) | payer MEDICAID, SELFPAY ==
[2023-10-11 16:50] LABS: Bacterial Vaginosis PCR POSITIVE (Negative); Candida Group PCR NOT DETECTED (Not Detect); Candida glab krusei PCR NOT DETECTED (Not Detect); Trichomonas vaginalis PCR NOT DETECTED (Not Detect)
[2023-10-11 17:11] LABS: CT PCR NOT DETECTED (Not Detect.); NG PCR NOT DETECTED (Not Detect.)
[2023-10-12 04:41] LABS: Syphilis Screen Nonreactive (Nonreactive)
[2023-10-12 05:05] LABS: HBc Num1 0.31 S/CO (0.00-0.79); HIV AB/AG Nonreactive (Nonreactive); HIV Num 1 0.06 S/CO (0.00-0.99); Hepatitis B Core Antibody Nonreactive (Nonreactive); ~HepC Num1 0.18 S/CO (0.00-0.79); ~Hepatitis C Antibody Nonreactive (Nonreactive)
[2023-10-17 14:34] LABS: HPV mRNA E6/E7 Not Detected (Not Detected)
== END 2023-10-11 11:20 | disposition home or self-care (01) ==
LOC: HO.LAB 11:19
PROVIDERS: PCP Family Medicine; Visit Provider Advanced Practice Midwife
DX: Z01.419 Encounter for gynecological examination (general) (routine) without abnormal findings (principal); R87.619 Unspecified abnormal cytological findings in specimens from cervix uteri; Z20.2 Contact with and (suspected) exposure to infections with a predominantly sexual mode of transmission; R10.2 Pelvic and perineal pain
CPT/HCPCS: 0352U; 36415; 81003; 81025; 86704; 86780; 86803; 87389; 87491; 87591; 87624; 88175; 99395

== ENCOUNTER 2023-10-16 08:30 | Outpatient (RCR) | payer OTHER, SELFPAY ==
--- NOTE | 2023-10-16 14:51 | PC.NURSE ---
At the end of the last group I was running patient came up to me and stated the program is not for her and does not plan on coming back to the program moving forward. She stated she has never done anything like this before and does not feel comfortable talking to group members about her issues. She stated she is going to let her PCP know that this did not work out. Denied SI, denied any safety concerns. She stated she is dealing with a lot in regards to her 14 year old daughter. I let her know that it was good that she was able to try the program and if she changed her mind in the future she could call Charlee to come back to the program. [facility] staff is aware.
== END 2023-10-16 23:59 | disposition home or self-care (01) ==
LOC: HO.PHPA 08:30
PROVIDERS: Visit Provider Psychiatry & Neurology Psychiatry
DX: F33.2 Major depressive disorder, recurrent severe without psychotic features (principal); F43.10 Post-traumatic stress disorder, unspecified; F41.1 Generalized anxiety disorder
CPT/HCPCS: 90791; 90853

== ENCOUNTER 2023-10-18 13:50 | Outpatient (REF) | payer MEDICAID, SELFPAY ==
--- NOTE | ~2023-10-18 | US_ITS ---
EXAMINATION: US PELVIS CLINICAL INFORMATION: Pelvic and perineal pain; last menstrual period was 2-3 days prior. COMPARISON: Pelvic ultrasound dated 10/17/2022. TECHNIQUE: Ultrasound of the pelvis is performed using both transabdominal and transvaginal transducers along with Doppler. Transvaginal imaging is performed due to inadequate visualization transabdominally. FINDINGS: Uterus: The uterus is retroverted and retroflexed. The uterus measures 10.0 x 5.2 x 5.4 cm. The double wall endometrial thickness is 0.4 mm. There are multiple calcifications again seen adjacent to the endometrial canal, the largest measuring 2 mm. These are of doubtful clinical significance and may be a sequela of prior hemorrhage or infection. The uterus is smooth in contour and has normal myometrial echogenicity. No visible fibroid. Adnexa: Both ovaries are visualized. There is normal color flow to the adnexa. There is no ovarian torsion. There is no pelvic ascites or fluid collection. Right ovary measures 3.1 x 1.5 x 1.8 cm, volume 4.4 mL . Left ovary measures 3.3 x 1.8 x 1.7 cm, volume 5.3 mL. US/US pelvic and transvaginal IMPRESSION: Unremarkable examination. Electronically signed by: Home Soares MD 11/13/2023 04:53 PM EDT
== END 2023-10-18 13:51 | disposition home or self-care (01) ==
LOC: HO.US 13:50
PROVIDERS: PCP Family Medicine; Visit Provider Advanced Practice Midwife
DX: R10.2 Pelvic and perineal pain (principal)
CPT/HCPCS: 76830; 76856

== ENCOUNTER 2023-12-20 12:01 | Outpatient (AMB) | payer MEDICAID, SELFPAY ==
--- NOTE | 2023-12-20 12:01 | A.OFFVIS_ITS ---
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 I spent 11 minutes speaking with the patient on the phone plus an additional 5 minutes reviewing the chart and 5 minutes updating the medical record for a total of 21 minutes. Patient presents via phone to discuss: Ultrasound results, prior history of occasional pelvic pain, she is concerned that it may be related to not being able to release with orgasm, she reports that often helps to release her pain. Currently not sexually. [facility] Medical History (Updated 10/11/23 @ 10:47 by Brittany Mtz CNM) Abnormal Pap smear of cervix Dyspareunia, female Frequency of urination Multiple sclerosis Exposure to TB Depression with anxiety Surgical History History of cranial surgery Hx of tubal ligation Family History Mother Asthma HTN (hypertension) HIV (human immunodeficiency virus infection) Father Asthma HTN (hypertension) Diabetes Paternal Uncle Lung cancer Family/Other Breast cancer Social History Household Members: Children Alcohol intake: current Alcohol intake frequency: a few times a month Alcohol type: beer, wine and hard liquor Patient Tobacco Use Status: Current everyday Tobacco user Tobacco use type: Cigarette Cigarette Packs Per Day: 1 Cigarettes Per Day: 10 Years Smoked: 28 service: No Current occupational status: disabled Female Reproductive History Menstrual Age of Menarche: 11 Review of Systems Const All systems reviewed & are unremarkable except as noted in HPI and below Endo Reports no additional complaints Physical Exam Const General: cooperative, healthy appearing and no acute distress Psych Appearance: well kempt Attitude: cooperative Thought process: Normal thought process present Telehealth Telehealth Telehealth Platform: Telephone Location of provider rendering services: practice address Location of patient: address on file Patient Identification confirmed using: Name, : Yes Telehealth method: voice only Patient verbally consented to treatment: Yes Patient verbally consented to billing insurance company: Yes Patient informed of any privacy concerns related to visit: Yes Results Reviewed Results Reviewed: [address] [address] Ultrasound Report Signed Patient: Evelyn Meyers MR#: [id number] : 1985 Acct:[id number] Age/Sex: 38 / F ADM Date: 10/18/23 Loc: [facility] Attending Dr: Brittany Mtz CNM Ordering Physician: Brittany Mtz CNM Date of Service: 10/18/23 Procedure(s): US pelvic and transvaginal Accession Number(s): [id number] cc: Brittany Mtz CNM; Tiara Han MD~ EXAMINATION: US PELVIS CLINICAL INFORMATION: Pelvic and perineal pain; last menstrual period was 2-3 days prior. COMPARISON: Pelvic ultrasound dated 10/17/2022. TECHNIQUE: Ultrasound of the pelvis is performed using both transabdominal and transvaginal transducers along with Doppler. Transvaginal imaging is performed due to inadequate visualization transabdominally. FINDINGS: Uterus: The uterus is retroverted and retroflexed. The uterus measures 10.0 x 5.2 x 5.4 cm. The double wall endometrial thickness is 0.4 mm. There are multiple calcifications again seen adjacent to the endometrial canal, the largest measuring 2 mm. These are of doubtful clinical significance and may be a sequela of prior hemorrhage or infection. The uterus is smooth in contour and has normal myometrial echogenicity. No visible fibroid. Adnexa: Both ovaries are visualized. There is normal color flow to the adnexa. There is no ovarian torsion. There is no pelvic ascites or fluid collection. Right ovary measures 3.1 x 1.5 x 1.8 cm, volume 4.4 mL . Left ovary measures 3.3 x 1.8 x 1.7 cm, volume 5.3 mL. US/US pelvic and transvaginal IMPRESSION: Unremarkable examination. Electronically signed by: Home Soares MD 11/13/2023 04:53 PM EDT RP Dictated By: Home Soares MD Signed By: <Electronically signed by Home Soares MD in OV> 11/13/23 1653 DD/ 1416 TD/TT: 10/18/23 1420 Blood Coordinator: APT Assessment & Plan Assessment & Plan (1) Encounter for annual routine gynecological examination: Code(s): Z01.419 - Encounter for gynecological examination (general) (routine) without abnormal findings Category: Medical (2) Encounter to discuss test results: Code(s): Z71.2 - Person consulting for explanation of examination or test findings Plan Discussed: Ultrasound findings unremarkable, no clear explanation of why she feels random occasional pelvic pain. Multiple factors should be considered as many things can cause pelvic pain including sources from the GI, urinary, musculoskeletal area. She has a appointment 03/08/2024 with her GI provider I recommend she discuss her lower abdominal discomfort. Unless she has any increase or persiste nt discomfort, advised she should notify the department sooner for further evaluation. If all is normal and she still has concerns she can consider returning to our department for consult with MD or referred out if needing a pelvic pain specialist. 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 Reviewed to call the office to be seen sooner if pain is increased. All of her questions and concerns were addressed to the best of my ability and shared decision making. She is agreeable to the plan of care. This note is constructed using voice recognition software. While every effort has been made to ensure accuracy, roll coating machine operator errors may have been included. Coding Level of Care Code Tele Est Pt Level 3 (94792) Diagnoses Encounter for annual routine gynecological examination Z01.419 Encounter to discuss test results Z71.2
== END 2023-12-20 13:48 | disposition home or self-care (01) ==
LOC: HO.HWS 12:01
PROVIDERS: PCP Family Medicine; Visit Provider Advanced Practice Midwife
DX: Z01.419 Encounter for gynecological examination (general) (routine) without abnormal findings (principal); Z71.2 Person consulting for explanation of examination or test findings
CPT/HCPCS: 99213

== ENCOUNTER → 2023-12-20 12:01 | Outpatient (BNVA) | payer MEDICAID, SELFPAY | PROVIDERS: PCP Family Medicine; Visit Provider Advanced Practice Midwife ==